=== PATIENT | female | born 1945 | race Caucasian/White ===

== ENCOUNTER 2021-01-12 09:12 | Emergency (ER) | payer MEDICARE ==
--- NOTE | 2021-01-12 09:27 | ERPHSYRPT ---
- History of Present Illness Time Seen by Provider: 01/12/21 09:24 Source: patient, family Exam Limitations: no limitations Physician History: The patient is a 75-year-old female with a past medical history significant for COPD and ongoing cigarette smoking in which she smokes a half a pack a day and reportedly started smoking when she was in college presents with a chief complaint thoracic back pain. Onset reportedly was 2 weeks ago. The pain is described as a sharp pain nonradiating and severe despite taking Tylenol in addition to ibuprofen. The patient states that she took 2 ibuprofen this morning with no relief in her pain and decided to come to the emergency department because over the last 2 weeks the pain is progressively gotten worse. She endorsed having shortness of breath but this is not increased from her baseline shortness of breath. The pain is nonradiating constant and primarily located to the right parathoracic lumbar spinous region. Of note, the patient has been evaluated by her primary care provider for this and had outpatient imaging to include a CT of her chest performed last Tuesday, January 05, 2021 and was found to have a right lower posterior lobe pulmonary mass. She has since been referred to a club room attendant and has a PET scan scheduled for today at 1215 in [place]. She denies cough, hemoptysis, chest pain, fever, chills, weight loss or worsening pain at night. She denies any traumatic injury that precipitated the pain. Timing/Duration: week(s) (2) Severity: severe Associated Symptoms: shortness of breath, No nausea, No vomiting, No abdominal pain, No cough, No chest pain Allergies/Adverse Reactions: Penicillins Allergy (Mild, Verified 01/12/21 10:01) Hiv Home Medications: ALPRAZolam [Xanax 0.25 mg] 0.25 mg PO DAILY 08/30/13 [History] Aspirin 81 gm Chew [Baby Aspirin 81 mg Chew] 81 mg PO DAILY 08/30/13 [History] Calcium Carbonate/Vitamin D3 [Calcium 500 + D Tablet] 1 each PO DAILY 08/30/13 [History] Citalopram Hydrobromide 20 mg* [ceLEXa 20 MG] 20 mg PO DAILY 08/30/13 [History] Multivitamin [Multivitamins] 1 each PO DAILY 08/30/13 [History] Omeprazole 20 MG [Prilosec 20 mg] 20 mg PO DAILY 08/30/13 [History] - Review of Systems Constitutional: Fatigue, Weakness, No Fever, No Chills Respiratory: Dyspnea, Other (Denies hemoptysis), No Cough, No Dyspnea on Exertion (SIM), No Stridor, No Wheezing Cardiac: No Chest Pain Musculoskeletal: Back Pain Neurological: No Symptoms Psychological: No Symptoms Endocrine: No Symptoms Hematologic/Lymphatic: No Symptoms All Other Systems: Reviewed and Negative - Past Medical History Pertinent Past Medical History: Yes Neurological History: No Pertinent History ENT History: No Pertinent History Cardiac History: No Pertinent History Respiratory History: No Pertinent History Endocrine Medical History: No Pertinent History Musculoskeletal History: No Pertinent History GI Medical History: GERD, Gallbladder Disease, Hemorrhoids History: No Pertinent History Psycho-Social History: Anxiety Female Reproductive Disorders: No Pertinent History - Past Surgical History Past Surgical History: Yes Neuro Surgical History: No Pertinent History Cardiac: No Pertinent History Respiratory: No Pertinent History Gastrointestinal: No Pertinent History, Cholecystectomy Genitourinary: No Pertinent History Musculoskeletal: No Pertinent History Female Surgical History: Section - Social History Smoking Status: Current every day smoker How long have you smoked: 40yrs Exposure to second hand smoke: No Drug Use: none - Nursing Vital Signs Nursing Vital Signs: Initial Vital Signs Temperature 97.9 F 01/12/21 09:12 Pulse Rate 86 01/12/21 09:12 Respiratory Rate 20 01/12/21 09:12 Blood Pressure 135/76 01/12/21 09:12 O2 Sat by Pulse Oximetry 96 01/12/21 09:12 Pain Scale Pain Intensity [Upper 10 Posterior Medial Back] Pain Intensity 5 - Physical Exam General Appearance: mild distress (The patient appeared to be writhing in pain and could not remain still) Eye Exam: PERRL/EOMI Ears, Nose, Throat Exam: No pharynx normal, No moist mucous membranes Neck Exam: normal inspection, non-tender, supple Respiratory Exam: lungs clear, diminished breath sounds, No respiratory distress, No crackles/rales, No rhonchi, No wheezing, No stridor, No pleural rub Cardiovascular Exam: regular rate/rhythm, normal heart sounds, normal peripheral pulses, capillary refill <2 sec, capillary refill 2-3 sec, No murmur, No friction rub, No gallop Gastrointestinal/Abdomen Exam: soft, No tenderness, No distention, No mass, No guarding Pelvic Exam: not done Rectal Exam: deferred Back Exam: normal inspection, other (No evidence of flank ecchymosis), No vertebral tenderness Neurologic Exam: alert, oriented x 3, cooperative Skin Exam: warm, dry, pale, No petechiae O2 Delivery: Room Air - Course EKG Interpreted by Me: RATE, Sinus Rhythm, Left [place] Deviation, NORMAL INTERVALS, NORMAL QRS, Other (Negative for STEMI, Normal sinus rhythm with a ventricular rate of 71 bpm) - Radiology Exams Chest X-ray Interpretation: Other (No acute findings) Ordered Tests: Active Orders 24 hr Category Date Time Status EKG-ER Only STAT Care 01/12/21 09:40 Completed IV Insertion STAT Care 01/12/21 09:40 Completed Pulse Oximetry (ED) STAT Care 01/12/21 09:40 Completed CHEST 2 VIEWS (PA AND LAT) Stat Exams 01/12/21 10:18 Completed BMP Stat Lab 01/12/21 09:50 Completed CBC W DIFF Stat Lab 01/12/21 09:50 Completed Hepatic Function Panel Stat Lab 01/12/21 09:50 Completed LIPASE Stat Lab 01/12/21 09:50 Completed Lactic Acid Stat Lab 01/12/21 11:14 Completed TROPONIN Stat Lab 01/12/21 09:50 Completed Medication Summary Discontinued Medications Generic Name Dose Route Start Last Admin Trade Name Caden PRN Reason Stop Dose Admin Hydrocodone Bitart/Acetaminophen 2 tab 01/12/21 09:43 01/12/21 10:05 Hydrocodone/Apap 5/325 Mg Tablet PO 01/12/21 09:44 2 tab STAT ONE Administration Hydrocodone Bitart/Acetaminophen Confirm 01/12/21 09:59 Hydrocodone/Apap 5/325 Mg Tablet Administered 01/12/21 10:00 Dose 2 tab .ROUTE .STK-MED ONE Hydromorphone HCl 0.3 mg 01/12/21 09:42 01/12/21 10:03 Hydromorphone 1 Mg/1ml Inj 1 Mg/Ml Syringe IV 01/12/21 09:43 0.3 mg STAT ONE Administration Hydromorphone HCl Confirm 01/12/21 09:59 Hydromorphone 1 Mg/1ml Inj 1 Mg/Ml Syringe Administered 01/12/21 10:00 Dose 1 mg .ROUTE .STK-MED ONE Sodium Chloride 1,000 mls @ 999 mls/hr 01/12/21 11:14 01/12/21 11:18 Sodium Chloride 0.9% 1000 Ml IV 01/12/21 12:14 999 mls/hr .Q1H1M STA Administration Sodium Chloride Confirm 01/12/21 11:18 Sodium Chloride 0.9% 1000 Ml Administered 01/12/21 11:19 Dose 1,000 mls @ ud .ROUTE .STK-MED ONE Ondansetron HCl 4 mg 01/12/21 09:42 01/12/21 10:03 Ondansetron Hcl 4 Mg/2 Ml Vial IV 01/12/21 09:43 4 mg STAT ONE Administration Ondansetron HCl Confirm 01/12/21 09:59 Ondansetron Hcl 4 Mg/2 Ml Vial Administered 01/12/21 10:00 Dose 4 mg .ROUTE .STK-MED ONE Pantoprazole Sodium 40 mg 01/12/21 10:50 01/12/21 10:58 Pantoprazole 40 Mg Vial IV 01/12/21 10:51 40 mg STAT ONE Administration Pantoprazole Sodium Confirm 01/12/21 10:58 Pantoprazole 40 Mg Vial Administered 01/12/21 10:59 Dose 40 mg IV .STK-MED ONE Simethicone 80 mg 01/12/21 10:51 01/12/21 11:07 Simethicone 80 Mg Tab.Chew PO 01/12/21 10:52 80 mg STAT ONE Administration Lab/Rad Data: Laboratory Result Diagrams 01/12/21 09:50 01/12/21 09:50 Laboratory Results 01/12/21 01/12/21 01/12/21 Range/Units 11:14 09:50 09:50 WBC (4.0-10.5) K/mm3 RBC (4.1-5.4) M/mm3 Hgb (12.0-16.0) gm/dl Hct (35-47) % MCV (78-100) fl MCH (26-32) pg MCHC (32-36) g/dl RDW (11.5-14.0) % Plt Count (150-450) K/mm3 MPV (7.5-11.0) fl Gran % (36.0-66.0) % Eos # (Auto) (0-0.5) Absolute Lymphs (auto) (1.0-4.6) Absolute Monos (auto) (0.0-1.3) Lymphocytes % (24.0-44.0) % Monocytes % (0.0-12.0) % Eosinophils % (0.00-5.0) % Basophils % (0.0-0.4) % Absolute Granulocytes (1.4-6.9) Basophils # (0-0.4) Sodium (137-145) mmol/L Potassium (3.5-5.1) mmol/L Chloride (98-107) mmol/L Carbon Dioxide (22-30) mmol/L Anion Gap (5-15) MEQ/L BUN (7-17) mg/dL Creatinine (0.52-1.04) mg/dL Estimated GFR ML/MIN Glucose (74-106) mg/dL Lactic Acid 1.0 (0.4-2.0) Calcium (8.4-10.2) mg/dL Total Bilirubin 0.70 (0.2-1.3) mg/dL Direct Bilirubin 0.2 (0.0-0.4) mg/dL AST 34 (14-36) U/L ALT 18 (0-35) U/L Alkaline Phosphatase 74 (38-126) U/L Troponin I (0.000-0.034) ng/mL Serum Total Protein 7.1 (6.3-8.2) g/dL Albumin 4.1 (3.5-5.0) g/dL Lipase 152 (23-300) U/L 01/12/21 01/12/21 Range/Units 09:50 09:50 WBC 10.1 (4.0-10.5) K/mm3 RBC 4.14 (4.1-5.4) M/mm3 Hgb 12.9 (12.0-16.0) gm/dl Hct 41.8 (35-47) % MCV 101.0 H (78-100) fl MCH 31.2 (26-32) pg MCHC 30.9 L (32-36) g/dl RDW 14.9 H (11.5-14.0) % Plt Count 228 (150-450) K/mm3 MPV 10.5 (7.5-11.0) fl Gran % 59.6 (36.0-66.0) % Eos # (Auto) 0.50 (0-0.5) Absolute Lymphs (auto) 2.74 (1.0-4.6) Absolute Monos (auto) 0.82 (0.0-1.3) Lymphocytes % 27.1 (24.0-44.0) % Monocytes % 8.1 (0.0-12.0) % Eosinophils % 4.9 (0.00-5.0) % Basophils % 0.3 (0.0-0.4) % Absolute Granulocytes 6.02 (1.4-6.9) Basophils # 0.03 (0-0.4) Sodium 141 (137-145) mmol/L Potassium 4.7 (3.5-5.1) mmol/L Chloride 107 (98-107) mmol/L Carbon Dioxide 27 (22-30) mmol/L Anion Gap 11.7 (5-15) MEQ/L BUN 22 H (7-17) mg/dL Creatinine 1.17 H (0.52-1.04) mg/dL Estimated GFR 48.2 ML/MIN Glucose 83 (74-106) mg/dL Lactic Acid (0.4-2.0) Calcium 9.6 (8.4-10.2) mg/dL Total Bilirubin (0.2-1.3) mg/dL Direct Bilirubin (0.0-0.4) mg/dL AST (14-36) U/L ALT (0-35) U/L Alkaline Phosphatase (38-126) U/L Troponin I < 0.012 (0.000-0.034) ng/mL Serum Total Protein (6.3-8.2) g/dL Albumin (3.5-5.0) g/dL Lipase (23-300) U/L - Progress Progress: improved Progress Note: 01/12/21 10:02 The patient presents with thoracic back pain has been present for the past 2 weeks has progressed to get worse. She has had outpatient work-ups to include plain films of her chest and thoracic back in addition to a CT of her chest. The CT of her chest on January 05, 2021 unfortunately demonstrated pulmonary nodules in addition to what appears to be a 2 cm + pulmonary mass located in the right posterior lobe. This is likely the etiology of her pain. I will perform a general work-up to include CBC, BMP, troponin and repeat her chest x-ray for further evaluation. Given that she has had this pain for the last 2 weeks and undergone imaging of her chest to include a CT my suspicion for PE at this point time is low. I will treat her pain with Dilaudid and will follow this up with [place] and reassess. EKG will also be obtained to eval for evidence of acute myocardial ischemia or injury pattern which I also have a low suspicion for at this time, specifically I have a low suspicion for ACS equivalent. 01/12/21 10:03 01/12/21 10:37 The patient was reassessed to find that she was much more comfortable. She was actually requested to be discharged so she can go to her PET scan. Family members have already contacted the imaging facility and made them aware they may be possibly late however they stated they can still likely fit her and if she is late. Her work-up thus far is negative to include her EKG which shows no evidence of ACS and her troponin is within normal limits. Chest x-ray shows no acute findings. 01/12/21 10:55 I spoke to the patient's primary care provider, Cynthia Draper, and discussed the case with her. She stated she was willing to refill the patient's [place] as needed given I can only provide a 3-day prescription. I went to update the patient with her discharge instructions and work-up findings however now she started to complain of some epigastric pressure and bloating. I suspect this is likely from the Dilaudid and the [place] she received. She has been n.p.o. since this morning given that she has a PET scan scheduled which is likely contributing to her symptoms as well. I will administer some simethicone and Protonix and see if this helps and will add a lipase to her work-up and put her discharge on hold for now. 01/12/21 11:15 The patient's blood pressure was noted to be 88/58. This may be from the Dilaudid the patient received. Lipase, LFTs and lactic are currently pending. Administer IV fluids and reassess. 01/12/21 11:41 The patient's blood pressure improved with IV fluids. She did get nauseous which I believe she may have a cold causing her hypotension as a side effect of the [place] and Dilaudid she received. Her blood pressure now is 102/59. I jericho laura she could be discharged to follow-up for her PET scan. Counseled pt/family regarding: lab results, diagnosis, need for follow-up, rad results - Departure Departure Disposition: Home Clinical Impression: Upper back pain on right side, Pulmonary mass, COPD (chronic obstructive pulmonary disease) Condition: Good Critical Care Time: No Referrals: MIGUEL TALBOT [facility] [employer]ER [Primary Care Provider] - Instructions: Chronic Obstructive Pulmonary Disease, Upper Back Pain Additional Instructions: Please follow-up as scheduled for your PET scan. Please take anywhere between 1 to 2 tablets of [place] (hydrocodone-acetaminophen) for breakthrough pain. Each tablet of [place] contains 325 mg of Tylenol. Please take no more than 975 mg of Tylenol at one time. Please do not mix any additional Tylenol (acetaminophen) while taking hydrocodone-acetaminophen to avoid potential liver injury. Do not consume alcohol while taking this medication and please do not take the hydrocodone acetaminophen together with your Xanax as this can make you stop breathing. Prescriptions: Sennosides/Docusate Sodium [Senna Laxative Tablet] 1 each PO QHS #30 tablet Hydrocodone/APAP 5/325 [[place] 5/325 mg] 1 - 2 each PO Q6H PRN PRN #16 tablet MDD 8 PRN Reason: Pain Ondansetron ODT 4 MG [Zofran Odt 4 mg] 4 mg PO Q6H PRN PRN #10 PRN Reason: Nausea
[2021-01-12] MEDS ORDERED: Zofran 4 MG/2 ML VIAL IV ONE (09:42)
[2021-01-12] MEDS ORDERED: Hydromorphone 1 mg/ml Injection IV ONE (09:42)
[2021-01-12] MEDS ORDERED: NORCO 5/325 MG PO ONE (09:43)
[2021-01-12] MEDS ORDERED: Zofran 4 MG/2 ML VIAL ONE (09:59)
[2021-01-12] MEDS ORDERED: NORCO 5/325 MG ONE (09:59)
[2021-01-12] MEDS ORDERED: Hydromorphone 1 mg/ml Injection ONE (09:59)
[2021-01-12 10:09] LABS: Absolute Neutrophil Ct (ANC) 6.02 (1.4-6.9); BASOPHIL % 0.3 % (0.0-0.4); Basophil (Absolute #) 0.03 (0-0.4); Eosinophil % 4.9 % (0.00-5.0); Hematocrit 41.8 % (35-47); Hemoglobin 12.9 gm/dl (12.0-16.0); Lymphocyte (Absolute #) 2.74 (1.0-4.6); Lymphocytes % 27.1 % (24.0-44.0); Mean Corpuscular Hemoglobin 31.2 pg (26-32); Mean Corpuscular Hgb Concent. 30.9 g/dl (32-36); Mean Platelet Volume 10.5 fl (7.5-11.0); Monocyte (Absolute #) 0.82 (0.0-1.3); Monocytes % 8.1 % (0.0-12.0); Neutrophil % 59.6 % (36.0-66.0); Platelet Count 228 K/mm3 (150-450); Red Blood Count 4.14 M/mm3 (4.1-5.4); Red Cell Distribution Width 14.9 % (11.5-14.0); White Blood Count 10.1 K/mm3 (4.0-10.5)
--- NOTE | 2021-01-12 10:28 | XRAY ---
Indication: Back pain. Comparison: January 05, 2021. PA/lateral chest unchanged again demonstrating COPD, right upper/left costophrenic angle/mediastinal calcified granulomas, and small right mid to lower lung nodularity. Heart not enlarged. Bony thorax intact again with osteopenia and degenerative changes. Impression: 1. Continued nonacute chest with chronic features. No new/acute findings. 2. Right and left lower lobe noncalcified masses seen on CT chest 6 days ago not visualized.
[2021-01-12 10:29] LABS: ANION GAP 11.7 MEQ/L (5-15); BLOOD UREA NITROGEN 22 mg/dL (7-17); CHLORIDE 107 mmol/L (98-107); Calcium 9.6 mg/dL (8.4-10.2); Carbon Dioxide 27 mmol/L (22-30); Creatinine 1 1.17 mg/dL (0.52-1.04); EST GLOMERULAR FILTRATION RATE 48.2 ML/MIN; Glucose 83 mg/dL (74-106); Potassium 4.7 mmol/L (3.5-5.1); SODIUM 141 mmol/L (137-145); TROPONIN < 0.012 ng/mL (0.000-0.034)
[2021-01-12] MEDS ORDERED: PROTONIX 40 MG IV IV ONE ×2 (10:50→10:58)
[2021-01-12] MEDS ORDERED: Mylicon 80MG PO ONE (10:51)
[2021-01-12] MEDS ORDERED: Sodium Chloride 0.9% 1000 ML 1,000 ML IV STA (11:14)
[2021-01-12] MEDS ORDERED: Sodium Chloride 0.9% 1000 ML 1,000 ML ONE (11:18)
[2021-01-12 11:36] LABS: ALBUMIN 4.1 g/dL (3.5-5.0); BILIRUBIN,TOTAL 0.7 mg/dL (0.2-1.3); Direct Bilirubin 0.2 mg/dL (0.0-0.4); Total Protein 7.1 g/dL (6.3-8.2)
[2021-01-12 11:41] VITALS: BP 102/59
[2021-01-12 11:43] VITALS: PULSE 71; O2SAT 99
== END 2021-01-12 11:48 | disposition home or self-care (01) ==
LOC: ED 09:12
DX: M54.6 Pain in thoracic spine (principal); R91.8 Other nonspecific abnormal finding of lung field; J44.9 Chronic obstructive pulmonary disease, unspecified
CPT/HCPCS: 36000; 36415; 71046; 80048; 80076; 83605; 83690; 84484; 85025; 93005; 94760; 96374; 96375; 99284; J1170; J2405; A9270-GY

== ENCOUNTER 2021-12-24 20:01 | Emergency (ER) | payer MEDICARE ==
[2021-12-24] MEDS ORDERED: Sodium Chloride 0.9% 1000 ML 1,000 ML IV SCH (20:45)
[2021-12-24] MEDS ORDERED: Sodium Chloride 0.9% 1000 ML 1,000 ML ONE (21:10)
[2021-12-24 21:14] LABS: Absolute Neutrophil Ct (ANC) 12.64 x10^3/uL (1.4-6.9); Basophil (Absolute #) 0.04 x10^3/uL (0-0.4); Eosinophil (Absolute #) 0 x10^3/uL (0-0.5); Hematocrit 26.6 % (35-47); Hemoglobin 7.7 g/dL (12.0-16.0); Lymphocyte (Absolute #) 1.73 x10^3/uL (1.0-4.6); Mean Cell Volume 103.1 fL (78-100); Mean Corpuscular Hemoglobin 29.8 pg (26-32); Mean Corpuscular Hgb Concent. 28.9 g/dL (32-36); Mean Platelet Volume 9.7 fL (7.5-11.0); Monocyte (Absolute #) 1.14 x10^3/uL (0.0-1.3); Monocytes % 7.3 % (0.0-12.0); Neutrophil % 80.5 % (36.0-66.0); Platelet Count 393 x10^3/uL (150-450); Red Blood Count 2.58 x10^6/uL (4.1-5.4); Red Cell Distribution Width 22.4 % (11.5-14.0); White Blood Count 15.7 x10^3/uL (4.0-10.5)
[2021-12-24 21:16] LABS: Appearance SLIGHTLY CLOUDY (CLEAR); Bilirubin MODERATE (NEGATIVE); Dipstick done @ ? MAIN LAB; Glucose NEGATIVE (NEGATIVE); Ketones SMALL-15 (NEGATIVE); Nitrite NEGATIVE (NEGATIVE); Ph 5.5 (5-6); Protein,Urine Dip 100 (Negative); RBC SMALL Ery/ul (0-5); Specific Gravity >=1.030 (1.005-1.025); Urobilinogen 0.2 mg/dL (0-1)
[2021-12-24 21:21] LABS: Bacteria FEW /HPF (NEGATIVE); Epithelial Cells RARE /HPF (FEW); Mucus MANY /HPF (NEGATIVE)
[2021-12-24 21:22] LABS: Urine Cultured Indicated? YES
[2021-12-24 21:29] LABS: ALBUMIN 2.4 g/dL (3.5-5.0); ANION GAP 7.1 MEQ/L (5-15); BILIRUBIN,TOTAL 0.7 mg/dL (0.2-1.3); Calcium 7.6 mg/dL (8.4-10.2); Creatinine 1 1.04 mg/dL (0.52-1.04); EST GLOMERULAR FILTRATION RATE 55.1 ML/MIN; Potassium 3.5 mmol/L (3.5-5.1); Total Protein 5.7 g/dL (6.3-8.2)
[2021-12-24] MEDS ORDERED: Macrobid 100MG Capsule PO ONE (22:17)
[2021-12-24] MEDS ORDERED: Macrobid 100MG Capsule ONE (22:20)
--- NOTE | 2021-12-24 22:40 | ERPHSYRPT ---
- History of Present Illness Source: patient, family Exam Limitations: no limitations Patient Subjective Stated Complaint: per pt's daughter, pt has been increasingly weak the last few days and family feels like she is dehydrated. Triage Nursing Assessment: pt alert and oriented, answers questions approp. pt back per wheelchair and transfers to stretcher with assist of 2. pt short of breath and pursed lip breathing with exertion. skin warm and dry. 2+ edema to bilat lower ext Timing/Duration: week(s), constant, gradual onset, worse Severity: moderate, severe Modifying Factors: Worsens With: movement Associated Symptoms: nausea, loss of appetite, malaise, weakness Hx Tetanus, Diphtheria Vaccination/Date Given: Yes Hx Influenza Vaccination/Date Given: No Hx Pneumococcal Vaccination/Date Given: No Immunizations Up to Date: Yes - History of Present Illness Time Seen by Provider: 12/24/21 20:03 Physician History: 76 years old female with history of lung cancer chemoradiation, COPD chronic respiratory failure on 2 L oxygen, heavy tobacco use presented in the ER with chief complaint of generalized weakness fatigue and tiredness. Patient has decreased oral intake and gradual decline in her health for the last few weeks and losing almost 5 pounds every week. Patient also has bilateral lower e xtremity swelling which is lately getting worse. She is refusing to eat or drink anything for the last couple of days and has not been taking her routine medications as well. No fever or chills reported. Has chronic shortness of breath and cough which is at baseline. (LENNIE KAUR) Allergies/Adverse Reactions: Penicillins Allergy (Mild, Verified 12/24/21 20:49) Hives Home Medications: ALPRAZolam [Xanax 0.25 mg] 0.25 mg PO DAILY 08/30/13 [History] Aspirin 81 gm Chew [Baby Aspirin 81 mg Chew] 81 mg PO DAILY 08/30/13 [H istory] Calcium Carbonate/Vitamin D3 [Calcium 500 + D Tablet] 1 each PO DAILY 08/30/13 [History] Citalopram Hydrobromide 20 mg* [ceLEXa 20 MG] 20 mg PO DAILY 08/30/13 [History] Multivitamin [Multivitamins] 1 each PO DAILY 08/30/13 [History] Omeprazole 20 MG [Prilosec 20 mg] 20 mg PO DAILY 08/30/13 [History] Travel Risk - International Travel Have you traveled outside of the country in past 3 weeks: No - Coronavirus Screening Are you exhibiting any of the following symptoms?: No Close contact with a COVID-19 positive Pt in past 14-21 Days: No - Vaccine Status Have you recieved a Covid-19 vaccination: Yes [employer]: Moderna - Vaccination Dates Date of 2cond Vaccination (if applicable): unknown - Review of Systems Constitutional: Fatigue, Weakness Eyes: No Symptoms Ears, Nose, & Throat: No Symptoms Respiratory: Cough, Dyspnea Cardiac: No Symptoms Abdominal/Gastrointestinal: Diarrhea Genitourinary Symptoms: No Symptoms Musculoskeletal: Myalgias Skin: No Symptoms Neurological: No Symptoms Psychological: Depression Endocrine: No Symptoms Hematologic/Lymphatic: No Symptoms Immunological/Allergic: No Symptoms - Past Medical History Pertinent Past Medical History: Yes Neurological History: No Pertinent History ENT History: No Pertinent History Cardiac History: No Pertinent History Respiratory History: COPD, Lung Cancer Endocrine Medical History: No Pertinent History Musculoskeletal History: No Pertinent History GI Medical History: GERD, Gallbladder Disease, Hemorrhoids History: Renal Disease Psycho-Social History: Anxiety Female Reproductive Disorders: No Pertinent History Other Medical History: radiation x10, chemo x1 - Past Surgical History Past Surgical History: Yes Neuro Surgical History: No Pertinent History Cardiac: No Pertinent History Respiratory: No Pertinent History Gastrointestinal: No Pertinent History, Cholecystectomy Genitourinary: No Pertinent History Musculoskeletal: No Pertinent History Female Surgical History: Section Other Surgical History: aaa with stent repair - Social History Smoking Status: Current every day smoker How long have you smoked: yrs Exposure to second hand smoke: No Drug Use: none Patient Lives Alone: No - Physical Exam General Appearance: no apparent distress, alert Eye Exam: PERRL/EOMI Ears, Nose, Throat Exam: dry mucous membranes, pharyngeal erythema Neck Exam: normal inspection, full range of motion Respiratory Exam: normal breath sounds, lungs clear Cardiovascular Exam: regular rate/rhythm, normal heart sounds, edema Gastrointestinal/Abdomen Exam: soft, normal bowel sounds, No tenderness Back Exam: normal inspection, No CVA tenderness Extremity Exam: normal range of motion, pelvis stable Neurologic Exam: alert, oriented x 3, cooperative Skin Exam: normal color SpO2 Interpretation: normal SpO2: 100 O2 Delivery: Nasal Cannula (2 L) - Nursing Vital Signs Nursing Vital Signs: Initial Vital Signs Temperature 98.2 F 10/13/22 20:19 Pulse Rate 104 H 12/24/21 20:19 Respiratory Rate 20 12/24/21 20:19 Blood Pressure 122/68 12/24/21 20:19 O2 Sat by Pulse Oximetry 100 12/24/21 20:19 Pain Scale Pain Intensity 0 - Course EKG Interpreted by Me: RATE (95), Sinus Rhythm, NORMAL AXIS, NORMAL INTERVALS, Non-specific ST Changes Ordered Tests: Active Orders 24 hr Category Date Time Status IV Insertion STAT Care 12/24/21 20:43 Completed CHEST 1 VIEW (PORTABLE) Stat Exams 12/24/21 21:30 Completed BLOOD CULTURE Stat Lab 12/24/21 21:41 Received BNP [NT PRO BNP] Stat Lab 12/24/21 20:45 Completed CBC W DIFF Stat Lab 12/24/21 20:45 Completed CMP Stat Lab 12/24/21 20:45 Completed CULTURE,URINE Stat Lab 12/24/21 20:45 Received Lactic Acid Stat Lab 12/24/21 21:08 Completed MAG [MAGNESIUM] Stat Lab 12/24/21 20:45 Completed PROCALCITONIN Stat Lab 12/24/21 21:00 Completed TROPONIN Q4H Lab 12/24/21 20:45 Completed UA W/RFX CULTURE Stat Lab 12/24/21 20:45 Completed Medication Summary Discontinued Medications Generic Name Dose Route Start Last Admin Trade Name Freq PRN Reason Stop Dose Admin Heparin Sodium (Beef Lung) 500 units 12/25/21 00:00 Heparin Lock Flush Pf 500 Units/5 Ml Syringe PORT FLUSH 01/24/22 00:00 PRN PRN IV PORT FLUSH Heparin Sodium (Beef Lung) Confirm 12/25/21 00:02 Heparin Lock Flush Pf 500 Units/5 Ml Syringe Administered 12/25/21 00:03 Dose 500 units .ROUTE .STK-MED ONE Sodium Chloride 1,000 mls @ 100 mls/hr 12/24/21 20:45 12/24/21 22:11 Sodium Chloride 0.9% 1000 Ml IV 01/23/22 20:44 500 mls/hr .Q10H FOUZIA Infusion Levofloxacin/Dextrose 500 mg in 100 mls @ 100 mls/hr 12/24/21 22:59 12/24/21 23:03 Levofloxacin 500mg/100ml D5w IV 10/13/22 23:58 100 mls/hr STAT STA 100 mls/hr Administration Levofloxacin/Dextrose Confirm 12/24/21 23:01 Levofloxacin 500mg/100ml D5w Administered 12/24/21 23:02 Dose 500 mg in 100 mls @ ud IV .STK-MED ONE Sodium Chloride Confirm 12/24/21 21:10 Sodium Chloride 0.9% 1000 Ml Administered 12/24/21 21:11 Dose 1,000 mls @ ud .ROUTE .STK-MED ONE Nitrofurantoin Macrocrystals 100 mg 12/24/21 22:17 12/24/21 22:21 Nitrofurantoin Macro 100 Mg Capsule PO 12/24/21 22:18 100 mg STAT ONE Administration Nitrofurantoin Macrocrystals Confirm 12/24/21 22:20 Nitrofurantoin Macro 100 Mg Capsule Administered 12/24/21 22:21 Dose 100 mg .ROUTE .STK-MED ONE Lab/Rad Data: Laboratory Result Diagrams 12/24/21 20:45 12/24/21 20:45 Laboratory Results 12/24/21 12/24/21 12/24/21 Range/Units 21:08 21:00 20:45 WBC (4.0-10.5) x10^3/uL RBC (4.1-5.4) x10^6/uL Hgb (12.0-16.0) g/dL Hct (35-47) % MCV (78-100) fL MCH (26-32) pg MCHC (32-36) g/dL RDW (11.5-14.0) % Plt Count (150-450) x10^3/uL MPV (7.5-11.0) fL Gran % (36.0-66.0) % Immature Gran % (Auto) (0.00-0.4) % Nucleat RBC Rel Count (0.00-0.1) % Eos # (Auto) (0-0.5) x10^3/uL Immature Gran # (Auto) (0.00-0.03) x10^3u/L Absolute Lymphs (auto) (1.0-4.6) x10^3/uL Absolute Monos (auto) (0.0-1.3) x10^3/uL Absolute Nucleated RBC (0.00-0.01) x10^3u/L Lymphocytes % (24.0-44.0) % Monocytes % (0.0-12.0) % Eosinophils % (0.00-5.0) % Basophils % (0.0-0.4) % Absolute Granulocytes (1.4-6.9) x10^3/uL Basophils # (0-0.4) x10^3/uL Sodium (137-145) mmol/L Potassium (3.5-5.1) mmol/L Chloride (98-107) mmol/L Carbon Dioxide (22-30) mmol/L Anion Gap (5-15) MEQ/L BUN (7-17) mg/dL Creatinine (0.52-1.04) mg/dL Estimated GFR ML/MIN Glucose (74-106) mg/dL Lactic Acid 0.9 (0.4-2.0) Calcium (8.4-10.2) mg/dL Magnesium 2.0 (1.6-2.3) mg/dL Total Bilirubin (0.2-1.3) mg/dL AST (14-36) U/L ALT (0-35) U/L Alkaline Phosphatase (38-126) U/L Troponin I (0.000-0.034) ng/mL NT-Pro-B Natriuret Pep 4970 H (0-900) pg/mL Serum Total Protein (6.3-8.2) g/dL Albumin (3.5-5.0) g/dL Procalcitonin 0.158 H (0.030-0.080) ng/mL Urinalys Dipstick Clnc Urine Color (YELLOW) Urine Appearance (CLEAR) Urine pH (5-6) Ur Specific [place] (1.005-1.025) POC Urine Protein Conf (Negative) Urine Ketones (NEGATIVE) Urine Nitrite (NEGATIVE) Urine Bilirubin (NEGATIVE) Urine Urobilinogen (0-1) mg/dL Urine Leukocytes (NEGATIVE) Urine WBC (Auto) (0-5) /HPF Urine RBC (Auto) (0-2) /HPF U Epithel Cells (Auto) (FEW) /HPF Urine Bacteria (Auto) (NEGATIVE) /HPF Urine RBC (0-5) Aubrey/ul Urine Mucus (Auto) (NEGATIVE) /HPF Ur Culture Indicated? Urine Glucose (NEGATIVE) mg/dL Slides for Path Review 12/24/21 12/24/21 12/24/21 Range/Units 20:45 20:45 20:45 WBC (4.0-10.5) x10^3/uL RBC (4.1-5.4) x10^6/uL Hgb (12.0-16.0) g/dL Hct (35-47) % MCV (78-100) fL MCH (26-32) pg MCHC (32-36) g/dL RDW (11.5-14.0) % Plt Count (150-450) x10^3/uL MPV (7.5-11.0) fL Gran % (36.0-66.0) % Immature Gran % (Auto) (0.00-0.4) % Nucleat RBC Rel Count (0.00-0.1) % Eos # (Auto) (0-0.5) x10^3/uL Immature Gran # (Auto) (0.00-0.03) x10^3u/L Absolute Lymphs (auto) (1.0-4.6) x10^3/uL Absolute Monos (auto) (0.0-1.3) x10^3/uL Absolute Nucleated RBC (0.00-0.01) x10^3u/L Lymphocytes % (24.0-44.0) % Monocytes % (0.0-12.0) % Eosinophils % (0.00-5.0) % Basophils % (0.0-0.4) % Absolute Granulocytes (1.4-6.9) x10^3/uL Basophils # (0-0.4) x10^3/uL Sodium 141 (137-145) mmol/L Potassium 3.5 (3.5-5.1) mmol/L Chloride 106 (98-107) mmol/L Carbon Dioxide 32 H (22-30) mmol/L Anion Gap 7.1 (5-15) MEQ/L BUN 19 H (7-17) mg/dL Creatinine 1.04 (0.52-1.04) mg/dL Estimated GFR 55.1 ML/MIN Glucose 95 (74-106) mg/dL Lactic Acid (0.4-2.0) Calcium 7.6 L (8.4-10.2) mg/dL Magnesium (1.6-2.3) mg/dL Total Bilirubin 0.70 (0.2-1.3) mg/dL AST 44 H (14-36) U/L ALT 18 (0-35) U/L Alkaline Phosphatase 112 (38-126) U/L Troponin I 0.016 (0.000-0.034) ng/mL NT-Pro-B Natriuret Pep (0-900) pg/mL Serum Total Protein 5.7 L (6.3-8.2) g/dL Albumin 2.4 L (3.5-5.0) g/dL Procalcitonin (0.030-0.080) ng/mL Urinalys Dipstick Clnc MAIN LAB Urine Color YELLOW (YELLOW) Urine Appearance SLIGHTLY CLOUDY (CLEAR) Urine pH 5.5 (5-6) Ur Specific [place] >=1.030 (1.005-1.025) POC Urine Protein Conf 100 (Negative) Urine Ketones SMALL-15 (NEGATIVE) Urine Nitrite NEGATIVE (NEGATIVE) Urine Bilirubin MODERATE (NEGATIVE) Urine Urobilinogen 0.2 (0-1) mg/dL Urine Leukocytes TRACE (NEGATIVE) Urine WBC (Auto) 11-15 (0-5) /HPF Urine RBC (Auto) 11-15 (0-2) /HPF U Epithel Cells (Auto) RARE (FEW) /HPF Urine Bacteria (Auto) FEW (NEGATIVE) /HPF Urine RBC SMALL (0-5) Aubrey/ul Urine Mucus (Auto) MANY (NEGATIVE) /HPF Ur Culture Indicated? YES Urine Glucose NEGATIVE (NEGATIVE) mg/dL Slides for Path Review 12/24/21 Range/Units 20:45 WBC 15.7 H (4.0-10.5) x10^3/uL RBC 2.58 L (4.1-5.4) x10^6/uL Hgb 7.7 L (12.0-16.0) g/dL Hct 26.6 L (35-47) % MCV 103.1 H (78-100) fL MCH 29.8 (26-32) pg MCHC 28.9 L (32-36) g/dL RDW 22.4 H (11.5-14.0) % Plt Count 393 (150-450) x10^3/uL MPV 9.7 (7.5-11.0) fL Gran % 80.5 H (36.0-66.0) % Immature Gran % (Auto) 0.9 H (0.00-0.4) % Nucleat RBC Rel Count 0.0 (0.00-0.1) % Eos # (Auto) 0 (0-0.5) x10^3/uL Immature Gran # (Auto) 0.14 H (0.00-0.03) x10^3u/L Absolute Lymphs (auto) 1.73 (1.0-4.6) x10^3/uL Absolute Monos (auto) 1.14 (0.0-1.3) x10^3/uL Absolute Nucleated RBC 0.00 (0.00-0.01) x10^3u/L Lymphocytes % 11.0 L (24.0-44.0) % Monocytes % 7.3 (0.0-12.0) % Eosinophils % 0.0 (0.00-5.0) % Basophils % 0.3 (0.0-0.4) % Absolute Granulocytes 12.64 H (1.4-6.9) x10^3/uL Basophils # 0.04 (0-0.4) x10^3/uL Sodium (137-145) mmol/L Potassium (3.5-5.1) mmol/L Chloride (98-107) mmol/L Carbon Dioxide (22-30) mmol/L Anion Gap (5-15) MEQ/L BUN (7-17) mg/dL Creatinine (0.52-1.04) mg/dL Estimated GFR ML/MIN Glucose (74-106) mg/dL Lactic Acid (0.4-2.0) Calcium (8.4-10.2) mg/dL Magnesium (1.6-2.3) mg/dL Total Bilirubin (0.2-1.3) mg/dL AST (14-36) U/L ALT (0-35) U/L Alkaline Phosphatase (38-126) U/L Troponin I (0.000-0.034) ng/mL NT-Pro-B Natriuret Pep (0-900) pg/mL Serum Total Protein (6.3-8.2) g/dL Albumin (3.5-5.0) g/dL Procalcitonin (0.030-0.080) ng/mL Urinalys Dipstick Clnc Urine Color (YELLOW) Urine Appearance (CLEAR) Urine pH (5-6) Ur Specific [place] (1.005-1.025) POC Urine Protein Conf (Negative) Urine Ketones (NEGATIVE) Urine Nitrite (NEGATIVE) Urine Bilirubin (NEGATIVE) Urine Urobilinogen (0-1) mg/dL Urine Leukocytes (NEGATIVE) Urine WBC (Auto) (0-5) /HPF Urine RBC (Auto) (0-2) /HPF U Epithel Cells (Auto) (FEW) /HPF Urine Bacteria (Auto) (NEGATIVE) /HPF Urine RBC (0-5) Aubrey/ul Urine Mucus (Auto) (NEGATIVE) /HPF Ur Culture Indicated? Urine Glucose (NEGATIVE) mg/dL Slides for Path Review YES - Progress Progress: unchanged Counseled pt/family regarding: lab results, diagnosis, need for follow-up, rad results - Progress Progress Note: 12/24/21 23:57 She is given gentle hydration as patient already have retention in her legs. Baseline work-up showed chronic anemia of 7.7 with hypoalbuminemia which probably is the reason for third spacing. Patient blood pressure is borderline, she has not been taking full dose Lasix for the last few days after she saw cardiology because of recent worsening of renal functions. Today her renal fu nctions are back to normal with a creatinine of 1.04. She has some element of UTI and elevated procalcitonin with no other obvious focus of infection, given a dose of IV Levaquin and will continue with 250 oral Levaquin.. Recommended observation admission which patient adamantly refused. Discussed with patient and daughters in detail multiple times and she does not want to stay in the hospital at all. Patient is not confused or altered and understand the risk of going home with worsening of condition but she still wants to leave. With her cancer and need for chemotherapy and decreased oral intake I believe she would benefit with PEG tube placement for which daughter is advised to follow-up outpatient with primary care and may need referral for GI/surgery for assessment and placement of PEG tube so that she can get adequate nutrition. Her main issue currently is malnutrition and also some element of depression as well. Patient and family is counseled and recommended return to ER for any worsening. (LENNIE KAUR) 12/25/21 08:55 Dr. Qiu called and stated that CXR w new R middle lobe opacity, either pneumonic infiltrate vs enlarging mass. Pt with known lung CA. She was discharged on Levaquin and refused admit per chart. Spoke w pt and told her that Levaquin was a good antibiotic for CAP and yhat she needed to f/u w her oncologist. (MARK ANTHONY ANGULO,CARO) - Departure Departure Disposition: Home Critical Care Time: No - Departure Clinical Impression: General weakness, Malnutrition, UTI (urinary tract infection) Condition: Fair Referrals: MIGUEL TALBOT, MONTESSORI PARAPROFESSIONAL [Primary Care Provider] - Follow up/PCP as directed (Tomorrow for reevaluation) Instructions: Failure to Thrive, Adult (DC) Additional Instructions: Small frequent feeds. Keep yourself well-hydrated. follow-up with primary care for reevaluation and referral to GI/surgery for PEG tube placement assessment. Return to ER for any worsening. Prescriptions: Levofloxacin [Levofloxacin 250MG Tablet] 250 mg PO DAILY #7 tab
[2021-12-24 22:50] LABS: Slide Review 1 YES
[2021-12-24] MEDS ORDERED: Levofloxacin 500MG/100ML D5W 500 MG/100 ML BAG IV STA (22:59)
[2021-12-24] MEDS ORDERED: Levofloxacin 500MG/100ML D5W 500 MG/100 ML BAG IV ONE (23:01)
[2021-12-25 00:02] VITALS: O2SAT 100
[2021-12-25 00:07] VITALS: BP 113/61; PULSE 102
--- NOTE | 2021-12-25 08:54 | XRAY ---
Indication: General weakness. Dehydration. Comparison: January 23, 2021 Portable chest demonstrates new right middle lung opacity either pneumonic infiltrate versus enlarging CT proven right lower lobe mass. New small right effusion and new right Port-A-Cath. Again chronic findings including COPD, scattered calcified granulomas, and partially visualized proximal abdominal aortic stent graft. Bony thorax intact again with osteopenia and degenerative changes. Comment: Right lung findings not reported by the interpreting ER clinician. Telephone report was given to Dr. Cristina at 0848 hrs. on December 25, 2021.
== END 2021-12-25 00:20 | disposition home or self-care (01) ==
LOC: ED 20:01
DX: R53.1 Weakness (principal); E46 Unspecified protein-calorie malnutrition; N39.0 Urinary tract infection, site not specified; J96.10 Chronic respiratory failure, unspecified whether with hypoxia or hypercapnia; Z99.81 Dependence on supplemental oxygen; Z85.118 Personal history of other malignant neoplasm of bronchus and lung; Z79.899 Other long term (current) drug therapy; D64.9 Anemia, unspecified; E88.09 Other disorders of plasma-protein metabolism, not elsewhere classified
CPT/HCPCS: 36000; 36415; 71045; 80053; 81015; 83605; 83735; 83880; 84145; 84484; 85025; 87040; 87077; 87086; 87186; 96360; 96361; 96365; 99284; J1642; J1956; A9270-GY

== ENCOUNTER 2022-01-07 18:01 | Emergency (ER) | payer MEDICARE ==
[2022-01-07] MEDS ORDERED: Klor Con PO ONE ×2 (20:19→20:24)
[2022-01-07] MEDS ORDERED: Sodium Chloride 0.9% 500 ML 500 ML IV ONE (20:24)
[2022-01-07] MEDS ORDERED: POTASSIUM CHLORIDE 20 mEq IN WATER 100ML 100 ML IV ONE (20:24)
[2022-01-07] MEDS: POTASSIUM CHLORIDE 20 mEq IN WATER 100ML 100 ML IV SCH ×2 (20:25→22:29)
[2022-01-07 22:08] VITALS: O2SAT 99
--- NOTE | 2022-01-07 23:05 | ERPHSYRPT ---
- History of Present Illness Source: patient, family Exam Limitations: no limitations Patient Subjective Stated Complaint: Patient was called at home by Dr. Mariscal's office and told that patient's K+ was low at 2.7 and that they need to go to an ER for treatment. K+ level was drawn at this hospital earlier today. Triage Nursing Assessment: Patient bundled up in shirts and jacket. She is alert and oriented. Currently wearing oxygen at 2L per N/C that she wears all of the time at home; not new. Physician History: 76 yo WF w lung ca presents from home w hypokalemia. Pt sent to ER per her geotechnical operating engineer for KCl of 2.7. Pt has chronic weakness due to her lung ca and has not been able to undergo chemo for 6-8 wks. She denies N/V/D/focal weakness/fever/chest pain/dyspnea. Pt states that she does not want to stay in the hospital. Timing/Duration: today Severity: mild Modifying Factors: Improves With: nothing Associated Symptoms: denies symptoms Allergies/Adverse Reactions: Penicillins Allergy (Mild, Verified 01/07/22 18:21) Hives Home Medications: ALPRAZolam [Xanax 0.25 mg] 0.25 mg PO DAILY 08/30/13 [History] Aspirin 81 gm Chew [Baby Aspirin 81 mg Chew] 81 mg PO DAILY 08/30/13 [History] Calcium Carbonate/Vitamin D3 [Calcium 500 + D Tablet] 1 each PO DAILY 08/30/13 [History] Citalopram Hydrobromide 20 mg* [ceLEXa 20 MG] 20 mg PO DAILY 08/30/13 [History] Multivitamin [Multivitamins] 1 each PO DAILY 08/30/13 [History] Omeprazole 20 MG [Prilosec 20 mg] 20 mg PO DAILY 08/30/13 [History] Hx Tetanus, Diphtheria Vaccination/Date Given: Yes Hx Influenza Vaccination/Date Given: No Hx Pneumococcal Vaccination/Date Given: Yes Immunizations Up to Date: Yes Travel Risk - International Travel Have you traveled outside of the country in past 3 weeks: No - Coronavirus Screening Are you exhibiting any of the following symptoms?: No Close contact with a COVID-19 positive Pt in past 14-21 Days: No - Vaccine Status Have you recieved a Covid-19 vaccination: Yes [employer]: Moderna - Vaccination Dates Date of 2cond Vaccination (if applicable): unknown - Review of Systems Constitutional: No Symptoms, Malaise, Weakness Eyes: No Symptoms Ears, Nose, & Throat: No Symptoms Respiratory: No Symptoms Cardiac: No Symptoms Abdominal/Gastrointestinal: No Symptoms Genitourinary Symptoms: No Symptoms Musculoskeletal: No Symptoms Skin: No Symptoms Neurological: No Symptoms Psychological: No Symptoms Endocrine: No Symptoms Hematologic/Lymphatic: No Symptoms Immunological/Allergic: No Symptoms - Past Medical History Pertinent Past Medical History: Yes Neurological History: No Pertinent History ENT History: No Pertinent History Cardiac History: No Pertinent History Respiratory History: COPD, Lung Cancer Endocrine Medical History: No Pertinent History Musculoskeletal History: No Pertinent History GI Medical History: GERD, Gallbladder Disease, Hemorrhoids History: Renal Disease Psycho-Social History: Anxiety Female Reproductive Disorders: No Pertinent History Other Medical History: radiation x10, chemo x1 - Past Surgical History Past Surgical History: Yes Neuro Surgical History: No Pertinent History Cardiac: No Pertinent History Respiratory: No Pertinent History Gastrointestinal: No Pertinent History, Cholecystectomy Genitourinary: No Pertinent History Musculoskeletal: No Pertinent History Female Surgical History: Section Other Surgical History: aaa with stent repair - Social History Smoking Status: Current every day smoker How long have you smoked: yrs Exposure to second hand smoke: No Drug Use: none Patient Lives Alone: No - Nursing Vital Signs Nursing Vital Signs: Initial Vital Signs Temperature 98.6 F 01/07/22 18:22 Pulse Rate 83 01/07/22 18:22 Respiratory Rate 18 01/07/22 18:22 Blood Pressure 97/68 01/07/22 18:22 O2 Sat by Pulse Oximetry 100 01/07/22 18:22 Pain Scale Pain Intensity 0 WNL for pt - Physical Exam General Appearance: no apparent distress, cachetic Eye Exam: PERRL/EOMI, eyes nml inspection Ears, Nose, Throat Exam: normal ENT inspection, TMs normal, pharynx normal, moist mucous membranes Neck Exam: normal inspection, non-tender, supple, full range of motion, No meningismus, No mass, No Brudzinski, No Kernig's Respiratory Exam: normal breath sounds, lungs clear, No respiratory distress Cardiovascular Exam: regular rate/rhythm, normal heart sounds, normal peripheral pulses, No murmur Gastrointestinal/Abdomen Exam: soft, normal bowel sounds, No tenderness Back Exam: normal inspection, normal range of motion, No CVA tenderness, No vertebral tenderness Extremity Exam: normal inspection, normal range of motion Neurologic Exam: alert, oriented x 3, cooperative, film or tape librarian II-XII nml as tested, normal mood/affect, nml cerebellar function, nml station & gait, sensation nml, No motor deficits, No sensory deficit, No disoriented Skin Exam: normal color, warm, dry, No rash Lymphatic Exam: No adenopathy SpO2 Interpretation: normal SpO2: 99 O2 Delivery: Room Air - Course Nursing assessment & vital signs reviewed: Yes Ordered Tests: Active Orders 24 hr Category Date Time Status Telemetry q4h Care 01/07/22 20:19 Active Medication Summary Generic Name Dose Route Start Last Admin Trade Name Freq PRN Reason Stop Dose Admin Heparin Sodium (Beef Lung) 500 units 01/07/22 22:55 01/07/22 22:57 Heparin Lock Flush Pf 500 Units/5 Ml Syringe PORT FLUSH 02/06/22 22:54 500 units PRN PRN Administration IV PORT FLUSH Potassium Chloride 100 mls @ 50 mls/hr 01/07/22 20:30 01/07/22 22:29 Potassium Chloride 20 Meq In Water 100ml IV 01/08/22 00:29 Not Given Q2H FOUZIA Discontinued Medications Generic Name Dose Route Start Last Admin Trade Name Freq PRN Reason Stop Dose Admin Sodium Chloride Confirm 01/07/22 20:24 Sodium Chloride 0.9% 500 Ml Administered 01/07/22 20:25 Dose 500 mls @ ud IV .STK-MED ONE Potassium Chloride 40 meq 01/07/22 20:19 01/07/22 20:25 Potassium Chloride Tab 10 Meq Tab PO 01/07/22 20:20 40 meq STAT ONE Administration Potassium Chloride Confirm 01/07/22 20:24 Potassium Chloride Tab 10 Meq Tab Administered 01/07/22 20:25 Dose 40 meq PO .STK-MED ONE - Progress Progress Note: 01/07/22 23:04 40mEQ po KCL 20mEQ in 50ml ml over 2 hours Counseled pt/family regarding: lab results, diagnosis, need for follow-up - Departure Departure Disposition: Home Clinical Impression: Hypokalemia Condition: Stable Critical Care Time: No Referrals: MIGUEL TALBOT NP [Primary Care Provider] - Follow up/PCP as directed Instructions: Hypokalemia (DC) Additional Instructions: Follow up with your geotechnical operating engineer and /or oncologist Start potassium twice a day Return to ER as needed Prescriptions: Potassium Chloride 20 meq PO BID 7 Days #250 ml
[2022-01-07 23:06] VITALS: BP 112/58; PULSE 88
== END 2022-01-07 23:15 | disposition home or self-care (01) ==
LOC: ED 18:01
DX: E87.6 Hypokalemia (principal); J44.9 Chronic obstructive pulmonary disease, unspecified; Z72.0 Tobacco use; Z79.899 Other long term (current) drug therapy
CPT/HCPCS: 36000; 96360; 96361; 99284; J1642; J3480; A9270-GY

== ENCOUNTER 2022-01-12 19:15 | Emergency (ER) | payer MEDICARE ==
[2022-01-12] MEDS ORDERED: TYLENOL 325 MG ONE (20:51)
[2022-01-12] MEDS: TYLENOL 325 MG PO ONE (20:51)
--- NOTE | 2022-01-12 21:02 | ERPHSYRPT ---
- History of Present Illness Time Seen by Provider: 01/12/22 20:57 Source: patient Exam Limitations: no limitations Patient Subjective Stated Complaint: left thigh pain since noon today Triage Nursing Assessment: pt brought back in wheelchair, with 2 daughters at bedside. Pt c/o left upper thigh pain, appears slightly swollen. Pt is unable to put any weight on her left leg at all. Rates pain a 10 out of 10. Physician History: Patient is a 76-year-old female with a history of lung cancer presents to emergency department for evaluation of the left hip pain. Pain started today. Pain described as an ache that is localized. No radiation. Patient has palpable swelling to this location. No falls. No injuries. No lower extremity numbness tingling weakness. Symptoms are mild to moderate in intensity. Palpation and ambulation reproduce symptoms. Pain improved with rest. 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 However she has no calf pain or posterior popliteal pain. Pain is lateral to the greater trochanter. Family at bedside. They voiced no other complaints or concerns at this time. Portions of this note were created with voice recognition technology. There may be grammatical, spelling, punctuation or sound alike errors Method of Injury: unknown Occurred: other (This morning) Quality: constant Severity of Pain-Max: moderate Severity of Pain-Current: mild Lower Extremities Pain: hip: left Modifying Factors: Improves With: other (Palpation reproduces pain.) Associated Symptoms: none Allergies/Adverse Reactions: Penicillins Allergy (Mild, Verified 01/12/22 19:38) Hives Home Medications: ALPRAZolam [Xanax 0.25 mg] 0.25 mg PO DAILY 08/30/13 [History] Aspirin 81 gm Chew [Baby Aspirin 81 mg Chew] 81 mg PO DAILY 08/30/13 [History] Calcium Carbonate/Vitamin D3 [Calcium 500 + D Tablet] 1 each PO DAILY 08/30/13 [History] Citalopram Hydrobromide 20 mg* [ceLEXa 20 MG] 20 mg PO DAILY 08/30/13 [History] Multivitamin [Multivitamins] 1 each PO DAILY 08/30/13 [History] Omeprazole 20 MG [Prilosec 20 mg] 20 mg PO DAILY 08/30/13 [History] Hx Tetanus, Diphtheria Vaccination/Date Given: Yes Hx Influenza Vaccination/Date Given: No Hx Pneumococcal Vaccination/Date Given: Yes Immunizations Up to Date: Yes Travel Risk - International Travel Have you traveled outside of the country in past 3 weeks: No - Coronavirus Screening Are you exhibiting any of the following symptoms?: No Close contact with a COVID-19 positive Pt in past 14-21 Days: No - Vaccine Status Have you recieved a Covid-19 vaccination: Yes [employer] Warm Up: Moderna - Vaccination Dates Date of 2cond Vaccination (if applicable): . - Review of Systems Constitutional: No Symptoms, No Fever, No Chills Eyes: No Symptoms Ears, Nose, & Throat: No Symptoms Respiratory: No Symptoms, No Cough, No Dyspnea Cardiac: No Symptoms, No Chest Pain, No Edema, No Syncope Abdominal/Gastrointestinal: No Symptoms, No Abdominal Pain, No Nausea, No Vomiting, No Diarrhea Genitourinary Symptoms: No Symptoms, No Dysuria Musculoskeletal: No Symptoms, No Back Pain, No Neck Pain Skin: No Symptoms, No Rash Neurological: No Symptoms, No Dizziness, No Focal Weakness, No Sensory Changes Psychological: No Symptoms Endocrine: No Symptoms Hematologic/Lymphatic: No Symptoms Immunological/Allergic: No Symptoms All Other Systems: Reviewed and Negative - Past Medical History Pertinent Past Medical History: Yes Neurological History: No Pertinent History ENT History: No Pertinent History Cardiac History: No Pertinent History Respiratory History: COPD, Lung Cancer Endocrine Medical History: No Pertinent History Musculoskeletal History: No Pertinent History GI Medical History: GERD, Gallbladder Disease, Hemorrhoids History: Renal Disease Psycho-Social History: Anxiety Female Reproductive Disorders: No Pertinent History Other Medical History: radiation x10, chemo x1 - Past Surgical History Past Surgical History: Yes Neuro Surgical History: No Pertinent History Cardiac: No Pertinent History Respiratory: No Pertinent History Gastrointestinal: Cholecystectomy Genitourinary: No Pertinent History Musculoskeletal: No Pertinent History Female Surgical History: Section Other Surgical History: aaa with stent repair, carpal tunnel - Social History Smoking Status: Current every day smoker How long have you smoked: 50 years Exposure to second hand smoke: No Drug Use: none Patient Lives Alone: No - Nursing Vital Signs Nursing Vital Signs: Initial Vital Signs Temperature 98.2 F 01/12/22 19:26 Pulse Rate 86 01/12/22 19:26 Respiratory Rate 18 01/12/22 19:26 Blood Pressure 93/62 01/12/22 19:26 O2 Sat by Pulse Oximetry 98 01/12/22 19:26 Pain Scale Pain Intensity 10 - Physical Exam General Appearance: no apparent distress, alert Eyes, Ears, Nose, Throat Exam: moist mucous membranes Neck Exam: normal inspection, non-tender, supple, full range of motion Cardiovascular/Respiratory Exam: chest non-tender, normal breath sounds, regular rate/rhythm, no respiratory distress Gastrointestinal/Abdominal Exam: non-tender, soft, guarding Back Exam: normal inspection, No vertebral tenderness Hips Exam: right: non-tender, normal inspection, normal range of motion, no evidence of injury, left: pain, swelling, other (Left lower extremity neurovascular intact distally. Compartments are soft. Cap refill less than 2 seconds. PT DP pulse palpable. There is bilateral extremity pitting edema which is chronic per family.) Legs Exam: bilateral leg: non-tender, normal inspection, normal range of motion, no evidence of injury Knees Exam: bilateral knee: non-tender, normal inspection, normal range of motion, no evidence of injury Ankle Exam: bilateral ankle: non-tender, normal inspection, normal range of motion, no evidence of injury Foot Exam: bilateral foot: non-tender, normal inspection, normal range of motion, no evidence of injury Neuro/Tendon Exam: normal sensation, normal motor functions Mental Status Exam: alert, oriented x 3, cooperative Skin Exam: normal color, warm, dry SpO2 Interpretation: normal SpO2: 98 O2 Delivery: Room Air - Course Nursing assessment & vital signs reviewed: Yes - CT Exams Lower Extremity CT Interpretation: Tele-radiologist Report (No comps. Osteopenia and partially visualized femorofemoral bypass. Remaining femur negative) Ordered Tests: Active Orders 24 hr Category Date Time Status Oxygen-ED Only Nasal Cannula 2 lpm Care 01/12/22 19:28 Active LOWER EXTREMITY WO CONTRAST [CT] Stat Exams 01/12/22 19:59 Taken Medication Summary Discontinued Medications Generic Name Dose Route Start Last Admin Trade Name Caden PRN Reason Stop Dose Admin Acetaminophen 975 mg 01/12/22 20:35 01/12/22 20:51 Acetaminophen 325 Mg Tablet PO 01/12/22 20:36 975 mg STAT ONE Administration Acetaminophen Confirm 01/12/22 20:51 Acetaminophen 325 Mg Tablet Administered 01/12/22 20:52 Dose 975 mg .ROUTE .STK-MED ONE - Progress Progress: improved Progress Note: Patient reassessed. She is comfortable. Patient requesting discharge. CT left femur and hip negative for fracture dislocations. Symptoms have been ongoing for less than a day. Patient does receive physical therapy for generalized weakness. Is unclear whether or not patient's left hip was injured during therapy however it will need to be monitored. Possible MRI if symptoms do not improve. Plan of care discussed with patient and daughters were at bedside. They agree to follow-up with primary care doctor within 48 hours for evaluation. Portions of this note were created with voice recognition technology. There may be grammatical, spelling, punctuation or sound alike errors 01/12/22 21:33 Patient has Vicodin at home for pain control 01/12/22 21:34 Counseled pt/family regarding: diagnosis, need for follow-up, rad results - Departure Departure Disposition: Home Clinical Impression: Hip pain, left, Soft tissue swelling Condition: Stable Critical Care Time: No Referrals: MIGUEL TALBOT NP [Primary Care Provider] - Follow up/PCP as directed Additional Instructions: Discharge/Care Plan BETOALEC RAQUEL was seen on 01/12/22 in the Emergency Room. The patient was counseled regarding Diagnosis,Lab results, Imaging studies, need for follow up and when to return to the Emergency Room. Prescriptions given: Discharge Note I have spoken with the patient and/or caregivers. I have explained the patient's condition, diagnosis and treatment plan based on the information available to me at this time. I have answered the patient's and/or caregiver's questions and addressed any concerns. The patient and/or caregivers have as good understanding of the patient's diagnosis, condition and treatment plan as can be expected at this point. The vital signs have been stable. The patient's condition is stable and appropriate for discharge from the emergency department. The patient will pursue further outpatient evaluation with the primary care physician or other designated or consulting physician as outlined in the discharge instructions. The patient and/or caregivers are agreeable to this plan of care and follow-up instructions have been explained in detail. The patient and/or caregivers have received these instruction. The patient/and or caregivers are aware that any significant change in condition or worsening of symptoms should prompt an immediate return to this or the closest emergency department or call 911.
[2022-01-12 22:37] VITALS: BP 96/64; PULSE 74; O2SAT 95
--- NOTE | 2022-01-13 08:43 | XRAY ---
Indication: Thigh pain. Multiple contiguous axial images obtained through the left femur to include the hip and knee without contrast. Sagittal and coronal reformatted images obtained. Comparison: None Osseous structures demineralized. Tiny spurring greater trochanter. No acute fracture, dislocation, suspicious bony lesions, or osseous destructive process. Hip joint demonstrates minimal degenerative joint space narrowing. No large hip/knee effusion. Lateral hip demonstrates mild subcutaneous induration either posttraumatic versus inflammatory/infectious. Additionally, there is a subtle heterogeneous fluid collection in the deeper soft tissues directly lateral and posterior to the greater trochanter measuring at least 7.5 x 1.5 x 7.5 cm either posttraumatic hematoma versus abscess. Lack of IV contrast precludes further characterization. Incidental partially visualized sigmoid diverticulosis. Remaining visualized noncontrasted soft tissues are unremarkable. Incidental partially visualized femoral-femoral bypass graft. Impression: 1. Lateral hip subcutaneous induration with deeper subtle heterogeneous fluid collection. Findings either posttraumatic hematoma versus abscess. 2. Osteopenia, degenerative changes, sigmoid diverticulosis, and partially visualized femorofemoral bypass graft. Comment: Telephone report was given to Dr. Brush at 0838 hrs. on January 13, 2022.
== END 2022-01-12 22:27 | disposition home or self-care (01) ==
LOC: ED 19:15
DX: M25.552 Pain in left hip (principal); R60.9 Edema, unspecified; J44.9 Chronic obstructive pulmonary disease, unspecified; Z72.0 Tobacco use; Z79.899 Other long term (current) drug therapy
CPT/HCPCS: 73700; 99283; A9270-GY

== ENCOUNTER 2022-09-16 21:41 | Emergency (ER) | payer MEDICARE ==
[2022-09-16 23:22] LABS: Absolute Neutrophil Ct (ANC) 5.19 x10^3/uL (1.4-6.9); BASOPHIL % 0.5 % (0.0-0.4); Basophil (Absolute #) 0.04 x10^3/uL (0-0.4); Eosinophil % 3.1 % (0.00-5.0); Eosinophil (Absolute #) 0.25 x10^3/uL (0-0.5); Hematocrit 35.7 % (35-47); Hemoglobin 10.8 g/dL (12.0-16.0); IMMATURE GRAN # 0.02 x10^3u/L (0.00-0.03); IMMATURE GRAN % 0.2 % (0.00-0.4); Lymphocyte (Absolute #) 1.74 x10^3/uL (1.0-4.6); Lymphocytes % 21.7 % (24.0-44.0); Mean Cell Volume 100.6 fL (78-100); Mean Corpuscular Hemoglobin 30.4 pg (26-32); Mean Corpuscular Hgb Concent. 30.3 g/dL (32-36); Mean Platelet Volume 9.8 fL (7.5-11.0); Monocyte (Absolute #) 0.78 x10^3/uL (0.0-1.3); Monocytes % 9.7 % (0.0-12.0); Neutrophil % 64.8 % (36.0-66.0); Platelet Count 266 x10^3/uL (150-450); Red Blood Count 3.55 x10^6/uL (4.1-5.4); Red Cell Distribution Width 14.4 % (11.5-14.0)
[2022-09-16 23:36] LABS: ALBUMIN 3.9 g/dL (3.5-5.0); ANION GAP 10.7 MEQ/L (5-15); BILIRUBIN,TOTAL 0.3 mg/dL (0.2-1.3); Calcium 8.9 mg/dL (8.4-10.2); Creatinine 1 1.04 mg/dL (0.52-1.04); EST GLOMERULAR FILTRATION RATE 55.1 ML/MIN; Potassium 4.4 mmol/L (3.5-5.1); Total Protein 7.2 g/dL (6.3-8.2)
--- NOTE | 2022-09-17 | ERPHSYRPT ---
- History of Present Illness Time Seen by Provider: 09/16/22 22:00 Exam Limitations: no limitations Patient Subjective Stated Complaint: pt states she has been having back pain for several days. today and some last night. pt states pain has moved to her chest. states pain is now in the middle of her chest and describes as sharp Triage Nursing Assessment: pt alert and oriented, answers questions approp. pt back per wheelchair and transfers to stretcher with assist of 1. pt pursed lip breathing, states is normal for her. lung sounds diminished. heart rate80 on monitor, sinus rhythm with occasional pvcs noted. skin warm and dry. Physician History: Patient is a 76-year-old female presents to our ED for evaluation of back pain that is currently radiating to mid chest. Patient has a long smoking history. She is currently a smoker. Patient is also a lung cancer patient. Patient's symptoms started 2 to 3 days ago. Symptoms are constant. Patient observed pursed lip breathing during transfer from wheelchair to bed. Patient states this is chronic due to her COPD. Pain is mild to moderate in intensity. No specific worsening improving factors. Patient denies history of the same. Family at bedside. Patient voices no other complaints or concerns at this time. Portions of this note were created with voice recognition technology. There may be grammatical, spelling, punctuation or sound alike errors Timing/Duration: day(s) (2 to 3 days ago) Activities at Onset: none Quality: sharpness Location: substernal Chest Pain Radiation: back Severity of Pain-Max: moderate Severity of Pain-Current: mild Modifying Factors: Improves With: nothing Associated Symptoms: denies symptoms Prior Chest Pain/Cardiac Workup: no prior chest pain Nitro Today/Relief: no nitro taken today Aspirin Treatment Today: no aspirin today Allergies/Adverse Reactions: spironolactone Allergy (Intermediate, Verified 09/16/22 22:05) Rash Penicillins Allergy (Mild, Verified 09/16/22 22:05) Hives Home Medications: ALPRAZolam [Xanax 0.25 mg] 0.5 mg PO BID 08/30/13 [History] Aspirin 81 gm Chew [Baby Aspirin 81 mg Chew] 81 mg PO DAILY 08/30/13 [History] Multivitamin [Multivitamins] 1 each PO DAILY 08/30/13 [History] Albuterol Common Canister [Ventolin Common Canister] 2 puff IH Q4H PRN PRN 09/16/22 [History] Atorvastatin Calcium 10 mg PO DAILY 09/16/22 [History] Biotin 1 mg PO DAILY 09/16/22 [History] Budesonide/Glycopyr/Formoterol [Breztri Aerosphere Inhaler] 2 puffs IH BID 09/03 [History] Clopidogrel Bisulfate [Clopidogrel] 75 mg PO DAILY 09/16/22 [History] Duloxetine HCl 60 mg PO DAILY 09/16/22 [History] Folic Acid 1 mg [Folate 1 mg] 1 mg PO DAILY 09/16/22 [History] Levothyroxine Sodium 25 Mcg [Synthroid 25 Mcg] 25 mcg PO DAILY 09/16/22 [History] Midodrine HCl 2.5 mg PO TID 09/16/22 [History] Zolpidem Tartrate 5 mg [Ambien 5 MG Tablet] 5 mg PO HS 09/16/22 [History] Hx Tetanus, Diphtheria Vaccination/Date Given: Yes Hx Influenza Vaccination/Date Given: Yes Hx Pneumococcal Vaccination/Date Given: Yes Travel Risk - International Travel Have you traveled outside of the country in past 3 weeks: No - Coronavirus Screening Are you exhibiting any of the following symptoms?: No Close contact with a COVID-19 positive Pt in past 14-21 Days: No - Vaccine Status Have you recieved a Covid-19 vaccination: Yes Cal[employer]ner: Moderna - Vaccination Dates Date of 2cond Vaccination (if applicable): 2020 - Review of Systems Constitutional: No Symptoms, No Fever, No Chills Eyes: No Symptoms Ears, Nose, & Throat: No Symptoms Respiratory: No Symptoms, No Cough, No Dyspnea Cardiac: No Symptoms, No Chest Pain, No Edema, No Syncope Abdominal/Gastrointestinal: No Symptoms, No Abdominal Pain, No Nausea, No Vomiting, No Diarrhea Genitourinary Symptoms: No Symptoms, No Dysuria Musculoskeletal: No Symptoms, No Back Pain, No Neck Pain Skin: No Symptoms, No Rash Neurological: No Symptoms, No Dizziness, No Focal Weakness, No Sensory Changes Psychological: No Symptoms Endocrine: No Symptoms Hematologic/Lymphatic: No Symptoms Immunological/Allergic: No Symptoms All Other Systems: Reviewed and Negative - Past Medical History Pertinent Past Medical History: Yes Neurological History: No Pertinent History ENT History: No Pertinent History Cardiac History: No Pertinent History Respiratory History: Lung Cancer Endocrine Medical History: Hypothyroidism Musculoskeletal History: Osteoarthritis GI Medical History: GERD, Gallbladder Disease, Hemorrhoids History: Renal Disease Psycho-Social History: Anxiety Female Reproductive Disorders: No Pertinent History Other Medical History: PATIENT USES 02 AT HOME, SHE USES 2 L AT ALL TIMES. - Past Surgical History Past Surgical History: Yes Neuro Surgical History: No Pertinent History Cardiac: No Pertinent History Respiratory: No Pertinent History Gastrointestinal: Cholecystectomy Genitourinary: No Pertinent History Musculoskeletal: No Pertinent History Female Surgical History: Section Other Surgical History: aaa with stent repair, carpal tunnel, lung bx - Social History Smoking Status: Current every day smoker How long have you smoked: 50 years Exposure to second hand smoke: No Drug Use: none Patient Lives Alone: No - Nursing Vital Signs Nursing Vital Signs: Initial Vital Signs Temperature 97.8 F 09/16/22 21:42 Pulse Rate 82 09/16/22 21:42 Respiratory Rate 26 H 09/16/22 21:42 Blood Pressure 132/74 09/16/22 21:42 O2 Sat by Pulse Oximetry 100 09/16/22 21:42 Pain Scale Pain Intensity 8 - Physical Exam General Appearance: no apparent distress, alert Eye Exam: PERRL/EOMI, eyes nml inspection Ears, Nose, Throat Exam: normal ENT inspection, moist mucous membranes Neck Exam: normal inspection, non-tender, supple, full range of motion Respiratory Exam: normal breath sounds, lungs clear, No respiratory distress Cardiovascular Exam: regular rate/rhythm, normal heart sounds Gastrointestinal/Abdomen Exam: soft, No tenderness, No mass Back Exam: normal inspection, No CVA tenderness, No vertebral tenderness Extremity Exam: normal inspection, normal range of motion Neurologic Exam: alert, oriented x 3, cooperative, normal mood/affect, sensation nml, No motor deficits Skin Exam: normal color, warm, dry Lymphatic Exam: No adenopathy SpO2 Interpretation: normal SpO2: 100 O2 Delivery: Room Air - Course Nursing assessment & vital signs reviewed: Yes EKG Interpreted by Me: RATE (85), Sinus Rhythm, Left [place] Deviation, NORMAL INTERVALS - Radiology Exams Chest X-ray Interpretation: Interpreted by me (Right lower lobe mass, Port-A-Cath, COPD, calcified granuloma, osteopenia, degenerative changes) Ordered Tests: Active Orders 24 hr Category Date Time Status AMA [Release AMA] OM.NOW Care 09/17/22 01:46 Active Transmission Mechanic STAT Care 09/16/22 23:07 Active EKG-ER Only STAT Care 09/16/22 23:06 Active IV Insertion STAT Care 09/16/22 23:06 Active Pulse Oximetry (ED) STAT Care 09/16/22 23:06 Active CHEST 1 VIEW (PORTABLE) Stat Exams 09/16/22 23:41 Taken CBC W DIFF Stat Lab 09/16/22 23:19 Completed CMP Stat Lab 09/16/22 23:19 Completed D-DIMER QUANTITATIVE Stat Lab 09/16/22 23:55 Completed NT PRO BNPII Stat Lab 09/16/22 23:19 Completed TROPONIN Q4H Lab 09/16/22 23:19 Completed TROPONIN Q4H Lab 09/17/22 01:38 Completed TROPONIN Q4H Lab 09/17/22 07:15 Ordered Medication Summary Generic Name Dose Route Start Last Admin Trade Name Freq PRN Reason Stop Dose Admin Heparin Sodium (Beef Lung) 500 units 09/17/22 01:46 09/17/22 01:50 Heparin Lock Flush Pf 500 Units/5 Ml Syringe PICC 10/17/22 01:45 500 units PRN PRN Administration IV PORT FLUSH Discontinued Medications Generic Name Dose Route Start Last Admin Trade Name Freq PRN Reason Stop Dose Admin Ketorolac Tromethamine 30 mg 09/17/22 00:12 09/17/22 00:20 Ketorolac Tromethamine 30 Mg/Ml Inj IV 09/17/22 00:13 30 mg STAT ONE Administration Ketorolac Tromethamine Confirm 09/17/22 00:19 Ketorolac Tromethamine 30 Mg/Ml Inj Administered 09/17/22 00:20 Dose 30 mg .ROUTE .STK-MED ONE Lab/Rad Data: Laboratory Result Diagrams 09/16/22 23:19 09/16/22 23:19 Laboratory Results 09/17/22 09/16/22 09/16/22 Range/Units 01:38 23:55 23:19 WBC (4.0-10.5) x10^3/uL RBC (4.1-5.4) x10^6/uL Hgb (12.0-16.0) g/dL Hct (35-47) % MCV (78-100) fL MCH (26-32) pg MCHC (32-36) g/dL RDW (11.5-14.0) % Plt Count (150-450) x10^3/uL MPV (7.5-11.0) fL Gran % (36.0-66.0) % Immature Gran % (Auto) (0.00-0.4) % Nucleat RBC Rel Count (0.00-0.1) % Eos # (Auto) (0-0.5) x10^3/uL Immature Gran # (Auto) (0.00-0.03) x10^3u/L Absolute Lymphs (auto) (1.0-4.6) x10^3/uL Absolute Monos (auto) (0.0-1.3) x10^3/uL Absolute Nucleated RBC (0.00-0.01) x10^3u/L Lymphocytes % (24.0-44.0) % Monocytes % (0.0-12.0) % Eosinophils % (0.00-5.0) % Basophils % (0.0-0.4) % Absolute Granulocytes (1.4-6.9) x10^3/uL Basophils # (0-0.4) x10^3/uL D-Dimer 3.02 H* (0.0-0.50) mg/L Sodium (137-145) mmol/L Potassium (3.5-5.1) mmol/L Chloride (98-107) mmol/L Carbon Dioxide (22-30) mmol/L Anion Gap (5-15) MEQ/L BUN (7-17) mg/dL Creatinine (0.52-1.04) mg/dL Estimated GFR ML/MIN Glucose (74-106) mg/dL Calcium (8.4-10.2) mg/dL Total Bilirubin (0.2-1.3) mg/dL AST (14-36) U/L ALT (0-35) U/L Alkaline Phosphatase (38-126) U/L Troponin I < 0.012 (0.000-0.034) ng/mL NT-Pro-B Natriuret Pep 328 (<300) pg/mL Serum Total Protein (6.3-8.2) g/dL Albumin (3.5-5.0) g/dL 09/16/22 09/16/22 09/16/22 Range/Units 23:19 23:19 23:19 WBC 8.0 (4.0-10.5) x10^3/uL RBC 3.55 L (4.1-5.4) x10^6/uL Hgb 10.8 L (12.0-16.0) g/dL Hct 35.7 (35-47) % MCV 100.6 H (78-100) fL MCH 30.4 (26-32) pg MCHC 30.3 L (32-36) g/dL RDW 14.4 H (11.5-14.0) % Plt Count 266 (150-450) x10^3/uL MPV 9.8 (7.5-11.0) fL Gran % 64.8 (36.0-66.0) % Immature Gran % (Auto) 0.2 (0.00-0.4) % Nucleat RBC Rel Count 0.0 (0.00-0.1) % Eos # (Auto) 0.25 (0-0.5) x10^3/uL Immature Gran # (Auto) 0.02 (0.00-0.03) x10^3u/L Absolute Lymphs (auto) 1.74 (1.0-4.6) x10^3/uL Absolute Monos (auto) 0.78 (0.0-1.3) x10^3/uL Absolute Nucleated RBC 0.00 (0.00-0.01) x10^3u/L Lymphocytes % 21.7 L (24.0-44.0) % Monocytes % 9.7 (0.0-12.0) % Eosinophils % 3.1 (0.00-5.0) % Basophils % 0.5 (0.0-0.4) % Absolute Granulocytes 5.19 (1.4-6.9) x10^3/uL Basophils # 0.04 (0-0.4) x10^3/uL D-Dimer (0.0-0.50) mg/L Sodium 139 (137-145) mmol/L Potassium 4.4 (3.5-5.1) mmol/L Chloride 103 (98-107) mmol/L Carbon Dioxide 29 (22-30) mmol/L Anion Gap 10.7 (5-15) MEQ/L BUN 25 H (7-17) mg/dL Creatinine 1.04 (0.52-1.04) mg/dL Estimated GFR 55.1 ML/MIN Glucose 95 (74-106) mg/dL Calcium 8.9 (8.4-10.2) mg/dL Total Bilirubin 0.30 (0.2-1.3) mg/dL AST 27 (14-36) U/L ALT 17 (0-35) U/L Alkaline Phosphatase 93 (38-126) U/L Troponin I < 0.012 (0.000-0.034) ng/mL NT-Pro-B Natriuret Pep (<300) pg/mL Serum Total Protein 7.2 (6.3-8.2) g/dL Albumin 3.9 (3.5-5.0) g/dL - Progress Progress: improved Air Movement: good Progress Note: Patient is a 76-year-old female presents to our ED for evaluation of back pain that radiates anteriorly to her chest. Patient has history of lung cancer. Physical exam reveals some tenderness to the anterior chest wall. Test ordered include chest x-ray which essentially unchanged from previous. CBC CMP ordered. CBC shows a macrocytic anemia of hemoglobin 10.8. D-dimer positive at 3.02. We were able to obtain CAT scan performed yesterday at [facility]. Patient had a CAT scan then with contrast. That particular CAT scan showed no large central or lobar pulmonary artery 3 filling defect. Troponin negative x2. Patient received a dose of Toradol for pain control. Pain significantly improved. Patient left AMA however. Patient did not want to wait for the second troponin. EKG showed no ischemic changes. Patient agrees to follow-up with primary care doctor within 48 hours for reevaluation. Patient's daughters are at her bedside. Patient is of sound mind. Patient is appropriate to make informed and indepen dent medical decisions. Patient understands that leaving AGAINST MEDICAL ADVICE can result in delayed diagnosis, increased risk of morbidity, mortality, short and long-term disability including . In spite of these risks, patient has decided to leave AGAINST MEDICAL ADVICE. Patient understands that she may return to our ED at any point if she reconsiders. Patient agrees to follow-up with his or her primary care doctor within 48 hours for reevaluation. Patient voices no other complaints or concerns at this time. We will release patient AGAINST MEDICAL ADVICE per their request. Complexity of problem addressed is moderate, acute complicated No critical care time Complexity of data reviewed and analyzed is moderate. Test ordered test independently reviewed and analyzed. Chest x-ray reviewed and analyzed by Dr. Crowder. No significant change from previous. We obtained a CAT scan report of chest abdomen pelvis with contrast from an outside hospital. CT report from [facility] shows stable right lower lobe pleural-based mass with associated pathologic fractures of the right posterior seventh and eighth rib. No interval change in adjacent right lung infiltrate which may relate to posttreatment change or infection/inflammation. Stable nodule in the left lower lobe. No findings of metastatic disease in the abdomen and pelvis. New mild compression fractures of L2, L12 and T11 with approximately 30% maximal height loss and no spinal canal compromise. Chronic additional findings as above including 6 cm AAA Risk of complication and or risk morbidity/mortality of patient management is moderate. No social determinants of health present to impede follow-up. Plan of care established via shared decision making. Vital stable. Patient discharge AMA because she said she did not want to wait for her second troponin. Portions of this note were created with voice recognition technology. There may be grammatical, spelling, punctuation or sound alike errors 09/17/22 02:25 Blood Culture(s) Obtained: No Antibiotics given: No Counseled pt/family regarding: lab results, diagnosis, need for follow-up, rad results - Departure Departure Disposition: Home Clinical Impression: Back pain, Chest pain, Spinal compression fracture Condition: Stable Critical Care Time: No Referrals: MIGUEL TALBOT NP [Primary Care Provider] - Follow up/PCP as directed Instructions: Chest Pain (DC) Additional Instructions: Discharge/Care Plan BETOALEC RAQUEL was seen on 09/17/22 in the Emergency Room. The patient was counseled regarding Diagnosis,Lab results, Imaging studies, need for follow up and when to return to the Emergency Room. Prescriptions given: Discharge Note I have spoken with the patient and/or caregivers. I have explained the patient's condition, diagnosis and treatment plan based on the information available to me at this time. I have answered the patient's and/or caregiver's questions and addressed any concerns. The patient and/or caregivers have as good understanding of the patient's diagnosis, condition and treatment plan as can be expected at this point. The vital signs have been stable. The patient's condition is stable and appropriate for discharge from the emergency department. The patient will pursue further outpatient evaluation with the primary care physician or other designated or consulting physician as outlined in the discharge instructions. The patient and/or caregivers are agreeable to this plan of care and follow-up instructions have been explained in detail. The patient and/or caregivers have received these instruction. The patient/and or caregivers are aware that any significant change in condition or worsening of symptoms s hould prompt an immediate return to this or the closest emergency department or call 911.
[2022-09-17] MEDS ORDERED: TORAdol 30 mg Injection IV ONE (00:12)
[2022-09-17] MEDS ORDERED: TORAdol 30 mg Injection ONE (00:19)
[2022-09-17 01:39] VITALS: BP 143/69; PULSE 82; O2SAT 100
--- NOTE | 2022-09-17 08:48 | XRAY ---
Indication: Chest pain. Comparison: December 24, 2021 Portable chest again demonstrates CT proven right lower lobe mass, COPD, and scattered calcified granulomas. Remaining heart and lungs unremarkable again with right Port-A-Cath. Bony thorax intact again with osteopenia and mild degenerative changes. No new cardiopulmonary abnormalities.
== END 2022-09-17 02:06 | disposition left against medical advice (07) ==
LOC: ED 21:41
DX: R07.9 Chest pain, unspecified (principal); M54.9 Dorsalgia, unspecified; M48.55XA Collapsed vertebra, not elsewhere classified, thoracolumbar region, initial encounter for fracture; J44.9 Chronic obstructive pulmonary disease, unspecified; Z79.02 Long term (current) use of antithrombotics/antiplatelets; Z79.899 Other long term (current) drug therapy; Z99.81 Dependence on supplemental oxygen; Z72.0 Tobacco use
CPT/HCPCS: 36000; 36415; 71045; 80053; 83880; 84484; 85025; 85379; 93005; 93041; 94760; 96374; 99284; J1642; J1885

== ENCOUNTER 2022-11-03 10:42 | Emergency (ER) | payer MEDICARE ==
[2022-11-03 11:07] VITALS: TEMP 97.1
--- NOTE | 2022-11-03 11:43 | ERPHSYRPT ---
- History of Present Illness Time Seen by Provider: 11/03/22 10:54 Source: patient Exam Limitations: no limitations Patient Subjective Stated Complaint: Pt states "I fell on tuesday and I fell again yesterday and I hurt all on the right side and on my head." Triage Nursing Assessment: Pt presented alert and oriented X 3, skin pwd. Pt ambulates with a slow gait, able to speak in clear full sentences. Pt has pain and tenderness noted to right shoulder, right hip and head. multiple bruises noted. Physician History: Patient is here after a fall. Patient states that she has had multiple falls over the past few days. States that she has felt off balance. Yesterday patient was reaching for her mailbox and fell backwards hitting her head on the concrete. They deny being on any blood thinners. Patient is on aspirin. Now having right hip pain, right elbow pain, head laceration. Allergies/Adverse Reactions: spironolactone Allergy (Intermediate, Verified 09/16/22 22:05) Rash Penicillins Allergy (Mild, Verified 09/16/22 22:05) Hives Home Medications: ALPRAZolam [Xanax 0.25 mg] 0.5 mg PO BID 08/30/13 [History] Aspirin 81 gm Chew [Baby Aspirin 81 mg Chew] 81 mg PO DAILY 08/30/13 [History] Multivitamin [Multivitamins] 1 each PO DAILY 08/30/13 [History] Albuterol Common Canister [Ventolin Common Canister] 2 puff IH Q4H PRN PRN 09/16/22 [History] Atorvastatin Calcium 10 mg PO DAILY 09/16/22 [History] Biotin 1 mg PO DAILY 09/16/22 [History] Budesonide/Glycopyr/Formoterol [Breztri Aerosphere Inhaler] 2 puffs IH BID 09/16/22 [History] Clopidogrel Bisulfate [Clopidogrel] 75 mg PO DAILY 09/16/22 [History] Duloxetine HCl 60 mg PO DAILY 09/16/22 [History] Folic Acid 1 mg [Folate 1 mg] 1 mg PO DAILY 09/16/22 [History] Levothyroxine Sodium 25 Mcg [Synthroid 25 Mcg] 25 mcg PO DAILY 09/16/22 [History] Midodrine HCl 2.5 mg PO TID 09/16/22 [History] Hydrocodone/Acetaminophen [Hydrocodone-Acetamin 5-325 mg] 1 each PO DAILY 11/03/22 [History] Morphine Sulfate [Morphine Sulfate ER] 10 mg PO BID 11/03/22 [History] Hx Tetanus, Diphtheria Vaccination/Date Given: No Hx Influenza Vaccination/Date Given: Yes Hx Pneumococcal Vaccination/Date Given: Yes Immunizations Up to Date: Yes Travel Risk - International Travel Have you traveled outside of the country in past 3 weeks: No - Coronavirus Screening Are you exhibiting any of the following symptoms?: No Close contact with a COVID-19 positive Pt in past 14-21 Days: No - Vaccine Status Have you recieved a Covid-19 vaccination: Yes [employer]: Moderna - Vaccination Dates Date of 2cond Vaccination (if applicable): 2020 - Review of Systems Constitutional: No Fever, No Chills Eyes: No Symptoms Ears, Nose, & Throat: No Symptoms Respiratory: No Cough, No Dyspnea Cardiac: No Chest Pain, No Edema, No Syncope Abdominal/Gastrointestinal: No Abdominal Pain, No Nausea, No Vomiting, No Diarrhea Genitourinary Symptoms: No Dysuria Musculoskeletal: No Back Pain, No Neck Pain Skin: Other (Head laceration), No Rash Neurological: No Dizziness, No Focal Weakness, No Sensory Changes Psychological: No Symptoms Endocrine: No Symptoms All Other Systems: Reviewed and Negative - Past Medical History Pertinent Past Medical History: Yes Neurological History: No Pertinent History ENT History: No Pertinent History Cardiac History: No Pertinent History Respiratory History: Lung Cancer Endocrine Medical History: Hypothyroidism Musculoskeletal History: Osteoarthritis GI Medical History: GERD, Gallbladder Disease, Hemorrhoids History: Renal Disease Psycho-Social History: Anxiety Female Reproductive Disorders: No Pertinent History Other Medical History: PATIENT USES 02 AT HOME, SHE USES 2 L AT ALL TIMES. - Past Surgical History Past Surgical History: Yes Neuro Surgical History: No Pertinent History Cardiac: No Pertinent History Respiratory: No Pertinent History Gastrointestinal: Cholecystectomy Genitourinary: No Pertinent History Musculoskeletal: No Pertinent History Female Surgical History: Section Other Surgical History: aaa with stent repair, carpal tunnel, lung bx - Social History Smoking Status: Current every day smoker How long have you smoked: 50 years Exposure to second hand smoke: No Drug Use: none Patient Lives Alone: No - Nursing Vital Signs Nursing Vital Signs: Initial Vital Signs Temperature 97.1 F 11/03/22 11:02 Pulse Rate 100 H 11/03/22 11:02 Respiratory Rate 20 11/03/22 11:02 Blood Pressure 124/64 11/03/22 11:02 O2 Sat by Pulse Oximetry 93 L 11/03/22 11:02 Pain Scale Pain Intensity 3 - Physical Exam SpO2: 100 Comments: 11/03/22 11:41 Physical Exam Vitals signs and nursing note reviewed. Constitutional: Appearance: Patient is well-developed. HENT: Head: Normocephalic and 4 cm laceration posterior scalp. clean and linear Eyes: Conjunctiva/sclera: Conjunctivae normal. Neck: Trachea: No tracheal deviation. Cardiovascular: Rate and Rhythm: Normal rate. Pulmonary: Effort: Pulmonary effort is normal. No respiratory distress. Abdominal: Palpations: Abdomen is soft. Musculoskeletal: General: Right elbow tenderness, right hip tenderness. No obvious deformity, sensation intact, 2+ capillary refill, 2 point tactile discrimination intact. 5 out of 5 strength. Full range of motion without pain. Compartments are soft, nontender. Overlying skin shows no tenting, bruising, ecchymosis. Skin: General: Skin is warm and dry. Neurological: Mental Status: Patient is alert and oriented to person, place, and time, behavior normal. 11/03/22 14:31 Procedures - Laceration/Wound Repair Head Wound Location: head Wound Length (cm): 4 Wound's Depth, Shape: superficial Wound Explored: clean Irrigated: Yes Hibiclens Prep: Yes Wound Repaired With: Nicole Number of Sutures: 5 Layer Closure?: No Sterile Dressing Applied?: Yes Splint Applied?: No Sling Applied?: No - Course Nursing assessment & vital signs reviewed: Yes EKG Interpreted by Me: Sinus Rhythm Ordered Tests: Active Orders 24 hr Category Date Time Status EKG-ER Only STAT Care 11/03/22 11:07 Completed CERVICAL SPINE WO CONTRAST [CT] Stat Exams 11/03/22 11:06 Completed CHEST 2 VIEWS (PA AND LAT) Stat Exams 11/03/22 11:07 Completed ELBOW (MINIMUM 3 VIEWS) Stat Exams 11/03/22 11:07 Completed HEAD WITHOUT CONTRAST [CT] Stat Exams 11/03/22 11:06 Completed HIP UNI (2V) INCL PEL IF DONE Stat Exams 11/03/22 11:08 Completed CBC W DIFF Stat Lab 11/03/22 11:44 Completed CMP Stat Lab 11/03/22 11:44 Completed TROPONIN Q4H Lab 11/03/22 11:44 Completed TROPONIN Q4H Lab 11/03/22 15:15 Ordered TROPONIN Q4H Lab 11/03/22 19:15 Ordered Lab/Rad Data: Laboratory Result Diagrams 11/03/22 11:44 11/03/22 11:44 Laboratory Results 11/03/22 11/03/22 11/03/22 Range/Units 11:44 11:44 11:44 WBC 12.3 H (4.0-10.5) x10^3/uL RBC 2.87 L (4.1-5.4) x10^6/uL Hgb 8.6 L (12.0-16.0) g/dL Hct 28.7 L (35-47) % MCV 100.0 (78-100) fL MCH 30.0 (26-32) pg MCHC 30.0 L (32-36) g/dL RDW 15.4 H (11.5-14.0) % Plt Count 234 (150-450) x10^3/uL MPV 9.3 (7.5-11.0) fL Gran % 82.5 H (36.0-66.0) % Immature Gran % (Auto) 0.9 H (0.00-0.4) % Nucleat RBC Rel Count 0.0 (0.00-0.1) % Eos # (Auto) 0.07 (0-0.5) x10^3/uL Immature Gran # (Auto) 0.11 H (0.00-0.03) x10^3u/L Absolute Lymphs (auto) 1.12 (1.0-4.6) x10^3/uL Absolute Monos (auto) 0.81 (0.0-1.3) x10^3/uL Absolute Nucleated RBC 0.00 (0.00-0.01) x10^3u/L Lymphocytes % 9.1 L (24.0-44.0) % Monocytes % 6.6 (0.0-12.0) % Eosinophils % 0.6 (0.00-5.0) % Basophils % 0.3 (0.0-0.4) % Absolute Granulocytes 10.11 H (1.4-6.9) x10^3/uL Basophils # 0.04 (0-0.4) x10^3/uL Sodium 139 (137-145) mmol/L Potassium 4.1 (3.5-5.1) mmol/L Chloride 102 (98-107) mmol/L Carbon Dioxide 28 (22-30) mmol/L Anion Gap 14.0 (5-15) MEQ/L BUN 24 H (7-17) mg/dL Creatinine 1.57 H (0.52-1.04) mg/dL Estimated GFR 34.1 ML/MIN Glucose 121 H (74-106) mg/dL Calcium 8.7 (8.4-10.2) mg/dL Total Bilirubin 0.80 (0.2-1.3) mg/dL AST 32 (14-36) U/L ALT 24 (0-35) U/L Alkaline Phosphatase 112 (38-126) U/L Troponin I < 0.012 (0.000-0.034) ng/mL Serum Total Protein 6.5 (6.3-8.2) g/dL Albumin 3.6 (3.5-5.0) g/dL - Progress Progress: improved Progress Note: 11/03/22 11:42 Differential diagnosis includes electrolyte abnormalities, arrhythmia, head b leed, fracture, other injury. Plan for head CT, CT C-spine, appropriate x-rays, basic labs, EKG 11/03/22 14:35 Imaging returned without obvious fracture or other injury. Patient does have an elevated creatinine, low hemoglobin. I did discuss this with the patient and the adult daughter. This alone with falls I do believe warrants a admission to the hospital. Certainly we should do a rectal exam as well. Patient states that she has had low hemoglobin in the past. Although her creatinine is elevated from her baseline she has had some elevated creatinines in the past. Patient ultimately declined a rectal exam, declined admission to the hospital. I do recommend that she continues aggressive hydration, outpatient follow-up at home. She may need to return here sooner for any new or changing symptoms. - Departure Departure Disposition: Home Clinical Impression: Laceration of head, REDDY (acute kidney injury), Low hemoglobin, Falls Condition: Stable Critical Care Time: No Referrals: TALBOT,MIGUEL, ATTENDANCE OFFICER [Primary Care Provider] - Follow up/PCP as directed Instructions: Contusion (DC), Preventing falls in adults Additional Instructions: You should probably be admitted today for your low hemoglobin, elevated kidney function. You may return here at any point in time to be admitted should you return. Until then follow-up closely with your PCP. Have your sutures removed in 7 days. You may return here sooner for new or changing symptoms.
[2022-11-03 11:48] LABS: Absolute Neutrophil Ct (ANC) 10.11 x10^3/uL (1.4-6.9); BASOPHIL % 0.3 % (0.0-0.4); Basophil (Absolute #) 0.04 x10^3/uL (0-0.4); Eosinophil % 0.6 % (0.00-5.0); Eosinophil (Absolute #) 0.07 x10^3/uL (0-0.5); Hematocrit 28.7 % (35-47); Hemoglobin 8.6 g/dL (12.0-16.0); IMMATURE GRAN # 0.11 x10^3u/L (0.00-0.03); IMMATURE GRAN % 0.9 % (0.00-0.4); Lymphocyte (Absolute #) 1.12 x10^3/uL (1.0-4.6); Lymphocytes % 9.1 % (24.0-44.0); Mean Platelet Volume 9.3 fL (7.5-11.0); Monocyte (Absolute #) 0.81 x10^3/uL (0.0-1.3); Monocytes % 6.6 % (0.0-12.0); Neutrophil % 82.5 % (36.0-66.0); Platelet Count 234 x10^3/uL (150-450); Red Blood Count 2.87 x10^6/uL (4.1-5.4); Red Cell Distribution Width 15.4 % (11.5-14.0); White Blood Count 12.3 x10^3/uL (4.0-10.5)
[2022-11-03 12:10] LABS: ALBUMIN 3.6 g/dL (3.5-5.0); BILIRUBIN,TOTAL 0.8 mg/dL (0.2-1.3); Calcium 8.7 mg/dL (8.4-10.2); Creatinine 1 1.57 mg/dL (0.52-1.04); EST GLOMERULAR FILTRATION RATE 34.1 ML/MIN; Potassium 4.1 mmol/L (3.5-5.1); Total Protein 6.5 g/dL (6.3-8.2)
--- NOTE | 2022-11-03 13:04 | XRAY ---
Indication: Head injury following fall. Multiple contiguous axial images obtained through the head without contrast. Comparison: None Age-appropriate global atrophy and mild periventricular degenerative micro-ischemia bilaterally. No acute intracranial hemorrhage, abnormal extra-axial fluid collection, or mass effect. Fourth ventricle is midline without hydrocephalus. Bony calvarium intact. Visualized paranasal sinuses and mastoid air cells are clear. Impression: Nonacute senile brain.
--- NOTE | 2022-11-03 13:06 | XRAY ---
Indication: Headache injury following fall. Multiple contiguous axial images obtained through the cervical spine. Sagittal and coronal reformatted images obtained. Comparison: None Age-related osteopenia. Axial images negative for acute fracture, suspicious bony lesions, or spinal canal stenosis. Minimal/mild C3-C6 degenerative endplate spurring. Mild multilevel bilateral degenerative facet hypertrophy, left greater than right. Sagittal and coronal reformatted images demonstrate lordotic straightening, positional versus paraspinal spasm. C3-C6 disc space narrowing. No acute compression fracture, subluxation, or jumped facet. Normal appearing craniocervical junction. Visualized noncontrasted soft tissues demonstrates diffuse centrilobular pulmonary emphysema and incompletely visualized right Port-A-Cath. Impression: 1. Negative acute fracture. Lordotic straightening, positional versus paraspinal spasm. 2. Chronic findings including osteopenia, multilevel degenerative spondylosis, and pulmonary emphysema.
--- NOTE | 2022-11-03 13:14 | XRAY ---
Indication: Status post fall. Comparison: None 3 view right elbow demonstrates osteopenia. No other bony, articular, or soft tissue abnormalities.
--- NOTE | 2022-11-03 13:14 | XRAY ---
Indication: Status post fall. Comparison: October 25, 2022 AP/lateral chest remains clear again with COPD. Heart not enlarged again with right Port-A-Cath and chunky mediastinal calcified nodes. Bony thorax intact again with osteopenia and mild degenerative changes. Impression: Continued nonacute chest with chronic features.
--- NOTE | 2022-11-03 13:16 | XRAY ---
Indication: Status post fall. Comparison: None AP pelvis and 2 view right hip demonstrates osteopenia, mild/moderate scattered arteriosclerotic disease, incompletely visualized distal AAA with aortic right iliac stents, and tiny right gluteal calcified injection granulomas. No other bony, articular, or soft tissue abnormalities.
[2022-11-03 13:38] VITALS: BP 120/74; RESP 20
[2022-11-03 13:48] VITALS: PULSE 68
[2022-11-03 14:35] VITALS: O2SAT 100
== END 2022-11-03 14:02 | disposition home or self-care (01) ==
LOC: ED 10:42
DX: S01.01XA Laceration without foreign body of scalp, initial encounter (principal); W18.30XA Fall on same level, unspecified, initial encounter; Z91.81 History of falling; Y92.007 Garden or yard of unspecified non-institutional (private) residence as the place of occurrence of the external cause; N17.9 Acute kidney failure, unspecified; D64.9 Anemia, unspecified; M25.551 Pain in right hip; M25.521 Pain in right elbow; Z79.02 Long term (current) use of antithrombotics/antiplatelets; Z79.891 Long term (current) use of opiate analgesic; Z79.899 Other long term (current) drug therapy; Z72.0 Tobacco use; Z99.81 Dependence on supplemental oxygen
CPT/HCPCS: 12002; 36415; 70450; 71046; 72125; 73080; 73502; 80053; 84484; 85025; 93005; 99284

== ENCOUNTER 2023-11-20 18:21 | Emergency (ER) | payer MEDICARE ==
[2023-11-20 18:50] VITALS: TEMP 98.4
--- NOTE | 2023-11-20 19:09 | ERPHSYRPT ---
- History of Present Illness Source: patient Exam Limitations: no limitations Patient Subjective Stated Complaint: Weakness Triage Nursing Assessment: Patient brought into ED per w/c and transferred to bed with assist of 1. Patient A+O X 3. Patient's skin pink, warm and dry. Patient's started not feeling well Th night and was really tired. Patient has not been eating or drinking since Tuesday. Patient wears home O2 at 4 liters per N/C. Patient has had increased SOB and non productive cough. Patient's lungs noted to be coarse and wheezing. Patient denies pain or discomfort. Patient had home covid test + today. Hx Tetanus, Diphtheria Vaccination/Date Given: No Hx Influenza Vaccination/Date Given: No Hx Pneumococcal Vaccination/Date Given: Yes Immunizations Up to Date: Yes <RAHUL CASTELLANOS - Last Filed: 11/20/23 19:04> <QUYNH LAUREN - Last Filed: 11/20/23 22:09> - History of Present Illness Time Seen by Provider: 11/20/23 18:50 Physician History: Pt has had fatigue and coughing for the past 3 days; decreased appetite and 99.9 degree fever 2 days ago; positive COVID test today. Pt denies chest pain, vomiting, abdominal pain. (RAHUL CASTELLANOS) Allergies/Adverse Reactions: spironolactone Allergy (Intermediate, Verified 11/20/23 18:35) Rash Penicillins Allergy (Mild, Verified 11/20/23 18:35) Hives Home Medications: ALPRAZolam [Xanax 0.25 mg] 0.5 mg PO BID 08/30/13 [History] Aspirin 81 gm Chew [Baby Aspirin 81 mg Chew] 81 mg PO DAILY 08/30/13 [History] Multivitamin [Multivitamins] 1 each PO DAILY 08/30/13 [History] Albuterol Common Canister [Ventolin Common Canister] 2 puff IH Q4H PRN PRN 09/16/22 [History] Atorvastatin Calcium 10 mg PO DAILY 09/16/22 [History] Biotin 1 mg PO DAILY 09/16/22 [History] Clopidogrel Bisulfate [Clopidogrel] 75 mg PO DAILY 09/16/22 [History] Duloxetine HCl 60 mg PO DAILY 09/16/22 [History] Levothyroxine Sodium 25 Mcg [Synthroid 25 Mcg] 25 mcg PO DAILY 09/16/22 [History] Midodrine HCl 2.5 mg PO TID 09/16/22 [History] Acetaminophen [Tylenol Arthritis] 1,300 mg PO DAILY 11/20/23 [History] Calcium Carb/Vit D3/Minerals [Calcium 600+D Plus Minerals Tb] 2 tab PO DAILY 11/20/23 [History] Cyanocobalamin (Vitamin B-12) [Vitamin B-12] 1,000 mcg PO DAILY 11/20/23 [History] Morphine Sulfate [Morphine Sulfate ER] 15 mg PO Q12H 11/20/23 [History] Vitamin E 400 Units [Vitamin E 400 UNIT SOFTGEL] 400 unit PO DAILY 11/19 [History] diphenhydrAMINE HCL [Sleep Aid] 50 mg PO HS 11/20/23 [History] Travel Risk - International Travel Have you traveled outside of the country in past 3 weeks: No - Emerging Infectious Disease Are you exhibiting symptoms associated with any current EIDs: No <RAHUL CASTELLANOS - Last Filed: 11/20/23 19:04> - Review of Systems Constitutional: Fever, Fatigue Ears, Nose, & Throat: No Ear Pain Respiratory: Dyspnea (chronically(on home oxygen 4L/min)) Cardiac: No Chest Pain Abdominal/Gastrointestinal: No Abdominal Pain, No Vomiting Genitourinary Symptoms: No Dysuria Skin: No Rash Neurological: No Headache <RAHUL CASTELLANOS - Last Filed: 11/20/23 19:04> - Past Medical History Pertinent Past Medical History: Yes Neurological History: No Pertinent History ENT History: No Pertinent History Cardiac History: No Pertinent History Respiratory History: Lung Cancer Endocrine Medical History: Hypothyroidism Musculoskeletal History: Osteoarthritis GI Medical History: GERD, Gallbladder Disease, Hemorrhoids History: Renal Disease Psycho-Social History: Anxiety Female Reproductive Disorders: No Pertinent History Other Medical History: PATIENT USES 02 AT HOME, SHE USES 2 L AT ALL TIMES. - Past Surgical History Past Surgical History: Yes Neuro Surgical History: No Pertinent History Cardiac: No Pertinent History Respiratory: No Pertinent History Gastrointestinal: Cholecystectomy Genitourinary: No Pertinent History Musculoskeletal: No Pertinent History Female Surgical History: Section Other Surgical History: aaa with stent repair, carpal tunnel, lung bx - Social History Smoking Status: Former smoker How long have you smoked: 50 years Exposure to second hand smoke: No Drug Use: none Patient Lives Alone: No - Social Determinants of Health Will the patient participate in the screening: Yes Do you worry about a steady place to live?: No Do you have any problems with any of the following?: No known problems In the past 12 months,have you had to go without utilities?: No Transportation Issues: No Has anyone in your support network made you feel unsafe?: No Have you or anyone in your house had to go without enough: No <RAHUL CASTELLANOS - Last Filed: 11/20/23 19:04> - Physical Exam General Appearance: alert Eye Exam: eyes nml inspection Ears, Nose, Throat Exam: dry mucous membranes, other (cerumen occlusion of left ear) Neck Exam: normal inspection Respiratory Exam: wheezing (moderate diffuse coarse wheezing) Cardiovascular Exam: No friction rub Gastrointestinal/Abdomen Exam: normal bowel sounds Extremity Exam: No pedal edema Neurologic Exam: alert, oriented x 3, cooperative Skin Exam: warm, dry, No cyanosis SpO2 Interpretation: normal SpO2: 100 O2 Delivery: Nasal Cannula (4L/min) <RAHUL CASTELLANOS - Last Filed: 11/20/23 19:04> - Nursing Vital Signs Nursing Vital Signs: Initial Vital Signs Temperature 98.4 F 11/20/23 18:37 Pulse Rate 81 11/20/23 18:37 Respiratory Rate 20 11/20/23 18:37 Blood Pressure 130/68 11/20/23 18:37 O2 Sat by Pulse Oximetry 100 11/20/23 18:37 Pain Scale Pain Intensity 0 - Course Nursing assessment & vital signs reviewed: Yes <RAHUL CASTELLANOS - Last Filed: 11/20/23 19:04> - Course EKG Interpreted by Me: RATE (69), Sinus Rhythm, Other (no acute ST changes, not suggestive of ischemia, [id number]) <QUYNH LAUREN - Last Filed: 11/20/23 22:09> Ordered Tests: Active Orders 24 hr Category Date Time Status EKG-ER Only STAT Care 11/20/23 19:10 Active IV Insertion STAT Care 11/20/23 19:10 Active CHEST 2 VIEWS (PA AND LAT) Stat Exams 11/20/23 19:11 Taken CBC W DIFF Stat Lab 11/20/23 19:29 Completed CMP Stat Lab 11/20/23 19:29 Completed CULTURE,URINE Stat Lab 11/20/23 21:12 Received MAGNESIUM Stat Lab 11/20/23 19:29 Completed TROPONIN Q4H Lab 11/20/23 19:29 Completed TROPONIN Q4H Lab 11/20/23 23:15 Ordered TROPONIN Q4H Lab 11/21/23 03:15 Ordered UA W/RFX UR CULTURE Stat Lab 11/20/23 21:12 Completed Respiratory Therapy Assessment DAILY RT 11/20/23 20:01 Active Medication Summary Generic Name Dose Route Start Last Admin Trade Name Freq PRN Reason Stop Dose Admin Heparin Sodium (Beef Lung) 500 units 11/20/23 21:49 11/20/23 21:50 Heparin Lock Flush Pf 500 Units/5 Ml Syringe PORT FLUSH 12/20/23 21:48 500 units PRN PRN Administration IV PORT FLUSH Discontinued Medications Generic Name Dose Route Start Last Admin Trade Name Freq PRN Reason Stop Dose Admin Albuterol Sulfate 2.5 mg 11/20/23 19:13 11/20/23 19:31 Albuterol Sulfate 2.5 Mg/3 Ml Neb IH 11/20/23 19:14 2.5 mg STAT ONE Administration Albuterol Sulfate Confirm 11/20/23 19:18 Albuterol Sulfate 2.5 Mg/3 Ml Neb Administered 11/20/23 19:19 Dose 2.5 mg IH .STK-MED ONE Sodium Chloride 1,000 mls @ 999 mls/hr 11/20/23 19:10 11/20/23 19:35 Sodium Chloride 0.9% 1000 Ml IV 11/20/23 20:10 999 mls/hr .Q1H1M STA Administration Sodium Chloride Confirm 11/20/23 19:34 Sodium Chloride 0.9% 1000 Ml Administered 11/20/23 19:35 Dose 1,000 mls @ ud .ROUTE .STK-MED ONE Nitrofurantoin Macrocrystals 100 mg 11/20/23 21:44 11/20/23 21:46 Nitrofurantoin Macro 100 Mg Capsule PO 11/20/23 21:45 100 mg STAT ONE Administration Nitrofurantoin Macrocrystals Confirm 11/20/23 21:46 Nitrofurantoin Macro 100 Mg Capsule Administered 11/20/23 21:47 Dose 100 mg .ROUTE .STK-MED ONE Nitrofurantoin Macrocrystals Confirm 11/20/23 21:57 Nitrofurantoin Macro 100 Mg Capsule Administered 11/20/23 21:58 Dose 100 mg .ROUTE .STK-MED ONE Prednisone Confirm 11/20/23 21:58 Prednisone 20 Mg Tablet Administered 11/20/23 21:59 Dose 20 mg .ROUTE .STK-MED ONE Lab/Rad Data: Laboratory Result Diagrams 11/20/23 19:29 11/20/23 19:29 Laboratory Results 11/20/23 11/20/23 11/20/23 Range/Units 21:12 19:29 19:29 WBC (3.98-10.04) x10^3/uL RBC (3.93-5.22) x10^6/uL Hgb (11.2-15.7) g/dL Hct (34.1-44.9) % MCV (79.4-94.8) fL MCH (25.6-32.2) pg MCHC (32.2-35.5) g/dL RDW (11.7-14.4) % Plt Count (182-369) x10^3/uL MPV (9.4-12.3) fL Gran % (34.0-71.1) % Immature Gran % (Auto) (0.001-0.429) % Nucleat RBC Rel Count (0.00-0.2) % Eos # (Auto) (0.04-0.36) x10^3/uL Immature Gran # (Auto) (0.001-0.031) x10^3u/L Absolute Lymphs (auto) (1.18-3.74) x10^3/uL Absolute Monos (auto) (0.24-0.86) x10^3/uL Absolute Nucleated RBC (0.00-0.012) x10^3u/L Lymphocytes % (19.3-51.7) % Monocytes % (4.7-12.5) % Eosinophils % (0.7-5.8) % Basophils % (0.1-1.2) % Absolute Granulocytes (1.56-6.13) x10^3/uL Basophils # (0.01-0.08) x10^3/uL Sodium (135-145) mmol/L Potassium (3.5-5.1) mmol/L Chloride (98-107) mmol/L Carbon Dioxide (22-30) mmol/L Anion Gap (5-15) MEQ/L BUN (7-17) mg/dL Creatinine (0.52-1.04) mg/dL Estimated GFR ML/MIN Glucose (74-106) mg/dL Calcium (8.4-10.2) mg/dL Magnesium (1.6-2.3) mg/dL Total Bilirubin (0.2-1.3) mg/dL AST (14-36) U/L ALT (0-35) U/L Alkaline Phosphatase (38-126) U/L Troponin I < 0.012 (0.000-0.033) ng/mL Serum Total Protein (6.3-8.2) g/dL Albumin (3.5-5.0) g/dL Urine Color Yellow (Yellow) Urine Appearance Turbid A (Clear) Urine pH 5.0 (4.6-8.0) Ur Specific [place] 1.020 (1.005-1.030) Urine Protein 30 (Negative) Urine Glucose (UA) Negative (Negative) mg/dL Urine Ketones Negative (Negative) Urine Blood Moderate A (Negative) Urine Nitrite Negative (Negative) Urine Bilirubin Negative (Negative) Urine Urobilinogen 0.2 (0.2) mg/dL Ur Leukocyte Esterase Large A (Negative) U Hyaline Cast (Auto) 3-5 A (0-2) /LPF Urine Microscopic RBC 11-20 A (0-5) /HPF Urine Microscopic WBC >100 A (0-5) /HPF Ur Epithelial Cells Many A (None Seen) /HPF Urine Bacteria Many A (None Seen) /HPF Urine Culture Reflexed YES (NO) Influenza Type A Ag NEGATIVE (NEGATIVE) Influenza Type B Ag NEGATIVE (NEGATIVE) RSV (PCR) NEGATIVE (NEGATIVE) SARS-CoV-2 (PCR) POSITIVE A (NEGATIVE) Group A Strep Antibody (NEGATIVE) 11/20/23 11/20/23 11/20/23 Range/Units 19:29 19:29 19:29 WBC (3.98-10.04) x10^3/uL RBC (3.93-5.22) x10^6/uL Hgb (11.2-15.7) g/dL Hct (34.1-44.9) % MCV (79.4-94.8) fL MCH (25.6-32.2) pg MCHC (32.2-35.5) g/dL RDW (11.7-14.4) % Plt Count (182-369) x10^3/uL MPV (9.4-12.3) fL Gran % (34.0-71.1) % Immature Gran % (Auto) (0.001-0.429) % Nucleat RBC Rel Count (0.00-0.2) % Eos # (Auto) (0.04-0.36) x10^3/uL Immature Gran # (Auto) (0.001-0.031) x10^3u/L Absolute Lymphs (auto) (1.18-3.74) x10^3/uL Absolute Monos (auto) (0.24-0.86) x10^3/uL Absolute Nucleated RBC (0.00-0.012) x10^3u/L Lymphocytes % (19.3-51.7) % Monocytes % (4.7-12.5) % Eosinophils % (0.7-5.8) % Basophils % (0.1-1.2) % Absolute Granulocytes (1.56-6.13) x10^3/uL Basophils # (0.01-0.08) x10^3/uL Sodium 136 (135-145) mmol/L Potassium 4.2 (3.5-5.1) mmol/L Chloride 100 (98-107) mmol/L Carbon Dioxide 30 (22-30) mmol/L Anion Gap 9.3 (5-15) MEQ/L BUN 22 H (7-17) mg/dL Creatinine 0.92 (0.52-1.04) mg/dL Estimated GFR 64.5 ML/MIN Glucose 144 H (74-106) mg/dL Calcium 8.6 (8.4-10.2) mg/dL Magnesium 1.9 (1.6-2.3) mg/dL Total Bilirubin 0.20 (0.2-1.3) mg/dL AST 46 H (14-36) U/L ALT 29 (0-35) U/L Alkaline Phosphatase 66 (38-126) U/L Troponin I (0.000-0.033) ng/mL Serum Total Protein 6.2 L (6.3-8.2) g/dL Albumin 3.4 L (3.5-5.0) g/dL Urine Color (Yellow) Urine Appearance (Clear) Urine pH (4.6-8.0) Ur Specific [place] (1.005-1.030) Urine Protein (Negative) Urine Glucose (UA) (Negative) mg/dL Urine Ketones (Negative) Urine Blood (Negative) Urine Nitrite (Negative) Urine Bilirubin (Negative) Urine Urobilinogen (0.2) mg/dL Ur Leukocyte Esterase (Negative) U Hyaline Cast (Auto) (0-2) /LPF Urine Microscopic RBC (0-5) /HPF Urine Microscopic WBC (0-5) /HPF Ur Epithelial Cells (None Seen) /HPF Urine Bacteria (None Seen) /HPF Urine Culture Reflexed (NO) Influenza Type A Ag (NEGATIVE) Influenza Type B Ag (NEGATIVE) RSV (PCR) (NEGATIVE) SARS-CoV-2 (PCR) (NEGATIVE) Group A Strep Antibody NOT DETECTED (NEGATIVE) 11/20/23 Range/Units 19:29 WBC 5.5 (3.98-10.04) x10^3/uL RBC 2.81 L (3.93-5.22) x10^6/uL Hgb 9.1 L (11.2-15.7) g/dL Hct 29.6 L (34.1-44.9) % MCV 105.3 H (79.4-94.8) fL MCH 32.4 H (25.6-32.2) pg MCHC 30.7 L (32.2-35.5) g/dL RDW 14.2 (11.7-14.4) % Plt Count 168 L (182-369) x10^3/uL MPV 9.6 (9.4-12.3) fL Gran % 67.6 (34.0-71.1) % Immature Gran % (Auto) 0.4 (0.001-0.429) % Nucleat RBC Rel Count 0.0 (0.00-0.2) % Eos # (Auto) 0.20 (0.04-0.36) x10^3/uL Immature Gran # (Auto) 0.02 (0.001-0.031) x10^3u/L Absolute Lymphs (auto) 0.90 L (1.18-3.74) x10^3/uL Absolute Monos (auto) 0.62 (0.24-0.86) x10^3/uL Absolute Nucleated RBC 0.00 (0.00-0.012) x10^3u/L Lymphocytes % 16.5 L (19.3-51.7) % Monocytes % 11.4 (4.7-12.5) % Eosinophils % 3.7 (0.7-5.8) % Basophils % 0.4 (0.1-1.2) % Absolute Granulocytes 3.69 (1.56-6.13) x10^3/uL Basophils # 0.02 (0.01-0.08) x10^3/uL Sodium (135-145) mmol/L Potassium (3.5-5.1) mmol/L Chloride (98-107) mmol/L Carbon Dioxide (22-30) mmol/L Anion Gap (5-15) MEQ/L BUN (7-17) mg/dL Creatinine (0.52-1.04) mg/dL Estimated GFR ML/MIN Glucose (74-106) mg/dL Calcium (8.4-10.2) mg/dL Magnesium (1.6-2.3) mg/dL Total Bilirubin (0.2-1.3) mg/dL AST (14-36) U/L ALT (0-35) U/L Alkaline Phosphatase (38-126) U/L Troponin I (0.000-0.033) ng/mL Serum Total Protein (6.3-8.2) g/dL Albumin (3.5-5.0) g/dL Urine Color (Yellow) Urine Appearance (Clear) Urine pH (4.6-8.0) Ur Specific [place] (1.005-1.030) Urine Protein (Negative) Urine Glucose (UA) (Negative) mg/dL Urine Ketones (Negative) Urine Blood (Negative) Urine Nitrite (Negative) Urine Bilirubin (Negative) Urine Urobilinogen (0.2) mg/dL Ur Leukocyte Esterase (Negative) U Hyaline Cast (Auto) (0-2) /LPF Urine Microscopic RBC (0-5) /HPF Urine Microscopic WBC (0-5) /HPF Ur Epithelial Cells (None Seen) /HPF Urine Bacteria (None Seen) /HPF Urine Culture Reflexed (NO) Influenza Type A Ag (NEGATIVE) Influenza Type B Ag (NEGATIVE) RSV (PCR) (NEGATIVE) SARS-CoV-2 (PCR) (NEGATIVE) Group A Strep Antibody (NEGATIVE) - Progress Progress: improved Air Movement: fair Blood Culture(s) Obtained: No Antibiotics given: Yes Counseled pt/family regarding: lab results, diagnosis, need for follow-up, rad results <QUYNH LAUREN - Last Filed: 11/20/23 22:09> - Progress Progress Note: 11/20/23 21:06 I assumed care for pt from Dr Castellanos at 19:00 covid +, negative flu/rsv cxr not suggestive of acute bacterial process pt has been AxO x 3 throughout ED stay pt reports breathing has improved since duoneb, O2 saturation >95% on baseline supplemental O2 labs largely unremarkable 11/20/23 22:03 UA suggestive of UTI - will start macrobid pt improved w/ duoneb treatment, still mild rhonchi on exam, pt and daughters report that pt has nebulizer treatments at home that she does not regularly use vitals have been stable during ED stay, O2 saturation around 100% on baseline 4L O2 pt has been symptomatic for > 72h, out of window for paxlovid at this time plan for dc home w/ prescription for macrobid and prednisone instructed to call for follow up w/ PCP Cynthia Newell first thing tomorrow morning recommend using nebulizer treatments q6-8h throughout the day scheduled while cough is acutely worsened recommend hydrating well with clear liquids and electrolyte containing fluids return to ED if: develop acute confusion, oxygen saturation starts to decrease below 88% despite supplemental oxygen, develop chest pain, develop fevers that do not resolve with tylenol (QUYNH LAUREN) Medical Desision Making - Diagnostic Testing Diagnostic test were ordered, analyzed, and reviewed by me: Yes Radiological Interpretation: Reviewed by me, Teleradiologist Report <QUYNH LAUREN - Last Filed: 11/20/23 22:09> <RAHUL CASTELLANOS - Last Filed: 11/20/23 19:04> - Departure Departure Disposition: Home Critical Care Time: No <QUYNH LAUREN - Last Filed: 11/20/23 22:09> - Departure Clinical Impression: COVID UTI (urinary tract infection) Qualifiers: Urinary tract infection type: acute cystitis Hematuria presence: without hematuria Qualified Code(s): N30.00 - Acute cystitis without hematuria Condition: Stable Referrals: MIGUEL NEWELL NP [Primary Care Provider] - Follow up/PCP as directed Additional Instructions: plan for dc home w/ prescription for macrobid and prednisone instructed to call for follow up w/ PCP Cynthia Newell first thing tomorrow morning recommend using nebulizer treatments q6-8h throughout the day scheduled while cough is acutely worsened recommend hydrating well with clear liquids and electrolyte containing fluids return to ED if: develop acute confusion, oxygen saturation starts to decrease below 88% despite supplemental oxygen, develop chest pain, develop fevers that do not resolve with tylenol Prescriptions: Prednisone 20 mg [Deltasone 20 mg] 20 mg PO DAILY #5 tablet Nitrofurantoin Macro 100 mg [Macrobid 100MG Capsule] 100 mg PO BID 7 Days #14 cap
[2023-11-20] MEDS ORDERED: PROVENTIL 2.5 MG/3 ML NEB IH ONE (19:18)
[2023-11-20] MEDS: PROVENTIL 2.5 MG/3 ML NEB IH ONE (19:31)
[2023-11-20 19:33] LABS: Absolute Neutrophil Ct (ANC) 3.69 x10^3/uL (1.56-6.13); BASOPHIL % 0.4 % (0.1-1.2); Basophil (Absolute #) 0.02 x10^3/uL (0.01-0.08); Eosinophil % 3.7 % (0.7-5.8); Hematocrit 29.6 % (34.1-44.9); Hemoglobin 9.1 g/dL (11.2-15.7); IMMATURE GRAN # 0.02 x10^3u/L (0.001-0.031); IMMATURE GRAN % 0.4 % (0.001-0.429); Lymphocytes % 16.5 % (19.3-51.7); Mean Cell Volume 105.3 fL (79.4-94.8); Mean Corpuscular Hemoglobin 32.4 pg (25.6-32.2); Mean Corpuscular Hgb Concent. 30.7 g/dL (32.2-35.5); Mean Platelet Volume 9.6 fL (9.4-12.3); Monocyte (Absolute #) 0.62 x10^3/uL (0.24-0.86); Monocytes % 11.4 % (4.7-12.5); Neutrophil % 67.6 % (34.0-71.1); Platelet Count 168 x10^3/uL (182-369); Red Blood Count 2.81 x10^6/uL (3.93-5.22); Red Cell Distribution Width 14.2 % (11.7-14.4); White Blood Count 5.5 x10^3/uL (3.98-10.04)
[2023-11-20] MEDS ORDERED: Sodium Chloride 0.9% 1000 ML 1,000 ML ONE (19:34)
[2023-11-20] MEDS: Sodium Chloride 0.9% 1000 ML 1,000 ML IV STA (19:35)
[2023-11-20 19:47] LABS: ALBUMIN 3.4 g/dL (3.5-5.0); ANION GAP 9.3 MEQ/L (5-15); BILIRUBIN,TOTAL 0.2 mg/dL (0.2-1.3); Calcium 8.6 mg/dL (8.4-10.2); Creatinine 1 0.92 mg/dL (0.52-1.04); EST GLOMERULAR FILTRATION RATE 64.5 ML/MIN; Potassium 4.2 mmol/L (3.5-5.1); Total Protein 6.2 g/dL (6.3-8.2)
[2023-11-20 20:15] LABS: INFLUENZA A NEGATIVE (NEGATIVE); INFLUENZA B NEGATIVE (NEGATIVE); RESPIRATORY SYNCTIAL VIRUS NEGATIVE (NEGATIVE)
[2023-11-20 20:23] LABS: SARS-CoV-2 Xpert Express POSITIVE (NEGATIVE)
[2023-11-20 21:36] LABS: ADD URINE CULTURE? YES (NO); Appearance Turbid (Clear); Bacteria Many /HPF (None Seen); Bilirubin Negative (Negative); Blood Moderate (Negative); Epithelial Cells Many /HPF (None Seen); Glucose, Urine Negative (Negative); Ketones Negative (Negative); Leukocyte Esterase Large (Negative); Nitrite Negative (Negative); Protein,Urine Dip 30 (Negative); Urobilinogen 0.2 mg/dL (0.2); WBC >100 /HPF (0-5)
[2023-11-20] MEDS: Macrobid 100MG Capsule PO ONE ×2 (21:46→22:08)
[2023-11-20] MEDS ORDERED: Macrobid 100MG Capsule ONE ×2 (21:46→21:57)
[2023-11-20] MEDS ORDERED: DELTASONE 20 MG ONE (21:58)
[2023-11-20] MEDS: DELTASONE 20 MG PO ONE (22:08)
[2023-11-20 22:27] VITALS: BP 128/59; PULSE 78; RESP 18; O2SAT 99
--- NOTE | 2023-11-21 08:46 | XRAY ---
Indication: Fever and cough. Comparison: November 03, 2022. PA/lateral chest again demonstrate COPD, CIPD, and left costophrenic angle calcified granuloma. No focal infiltrate, consolidation, or large effusion. Heart not enlarged with stable right Port-A-Cath. New small hiatal hernia. Bony thorax intact again with osteopenia and degenerative changes. Impression: Nonacute chest with chronic features.
== END 2023-11-20 22:22 | disposition home or self-care (01) ==
LOC: ED 18:21
DX: U07.1 COVID-19 (principal); N30.00 Acute cystitis without hematuria; R53.83 Other fatigue; R05.1 Acute cough; R50.9 Fever, unspecified; Z79.02 Long term (current) use of antithrombotics/antiplatelets; Z79.891 Long term (current) use of opiate analgesic; Z79.52 Long term (current) use of systemic steroids; Z79.899 Other long term (current) drug therapy; Z99.81 Dependence on supplemental oxygen
CPT/HCPCS: 0241U; 36000; 36415; 71046; 80053; 81001; 83735; 84484; 85025; 87086; 87651; 93005; 94640; 99284; J1642; J7609; A9270-GY

== ENCOUNTER 2023-11-23 17:36 | Emergency (ER) | payer MEDICARE ==
--- NOTE | 2023-11-23 17:44 | ERPHSYRPT ---
- History of Present Illness Source: patient Exam Limitations: no limitations Timing/Duration: day(s) (Worsening symptoms over the last 3 days), worse Activities at Onset: none Severity of Dyspnea-Max: moderate Severity of Dyspnea-Current: moderate Possible Cause: frequent episodes Modifying Factors: Improves With: activity (Since) Associated Symptoms: cough, weakness, No chest pain/discomfort Hx Tetanus, Diphtheria Vaccination/Date Given: No Hx Influenza Vaccination/Date Given: No Hx Pneumococcal Vaccination/Date Given: Yes - History of Present Illness Time Seen by Provider: 11/23/23 17:44 Physician History: This is a 78-year-old cachectic appearing white female patient of nurse practitioner Reece who has recently been diagnosed on 11/20/2023 for positive COVID 19 infection. Patient has oxygen dependent COPD and has been struggling to breathe since her discharge from the emergency department on 11/20/2023. Paramedics were contacted. Patient was found in tripod position struggling to breathe at home. Patient received a DuoNeb treatment by the paramedics. When she arrived to the emergency department she stated "I cannot breathe". She denies chest pain. She has no abdominal pain. She has no vomiting or diarrhea symptoms. (MARINA RANDHAWA) Allergies/Adverse Reactions: spironolactone Allergy (Intermediate, Verified 11/20/23 18:35) Rash Penicillins Allergy (Mild, Verified 11/20/23 18:35) Hives Home Medications: ALPRAZolam [Xanax 0.25 mg] 0.25 - 0.5 mg PO DAILY 08/30/13 [History] Aspirin 81 gm Chew [Baby Aspirin 81 mg Chew] 81 mg PO DAILY 08/30/13 [History] Multivitamin [Multivitamins] 1 tab PO DAILY 08/30/13 [History] Albuterol Common Canister [Ventolin Common Canister] 2 puff IH Q4H PRN PRN 09/16/22 [History] Atorvastatin Calcium 10 mg PO DAILY 09/16/22 [History] Biotin 1 mg PO DAILY 09/16/22 [History] Clopidogrel Bisulfate [Clopidogrel] 75 mg PO DAILY 09/16/22 [History] Duloxetine HCl 60 mg PO DAILY 09/16/22 [History] Levothyroxine Sodium 25 Mcg [Synthroid 25 Mcg] 25 mcg PO DAILY 09/16/22 [History] Midodrine HCl 2.5 mg PO TID 09/16/22 [History] Acetaminophen [Tylenol Arthritis] 1,300 mg PO DAILY 11/20/23 [History] Calcium Carb/Vit D3/Minerals [Calcium 600+D Plus Minerals Tb] 2 tab PO DAILY 11/20/23 [History] Cyanocobalamin (Vitamin B-12) [Vitamin B-12] 1,000 mcg PO DAILY 11/20/23 [History] Morphine Sulfate [Morphine Sulfate ER] 15 mg PO Q12H 11/20/23 [History] Vitamin E 400 Units [Vitamin E 400 UNIT SOFTGEL] 400 unit PO DAILY 11/20/23 [History] Denosumab [Xgeva] 1 misc SQ UD 11/23/23 [History] Nitrofurantoin Monohyd/M-Cryst [Nitrofurantoin [place]-Mcr 100 mg] 100 mg PO BID 11/23/23 [History] Prednisone 20 mg [Deltasone 20 mg] 20 mg PO DAILY 11/23/23 [History] Travel Risk - International Travel Have you traveled outside of the country in past 3 weeks: Yes - Emerging Infectious Disease Are you exhibiting symptoms associated with any current EIDs: No Symptoms: Shortness of Breath - Review of Systems Constitutional: Weakness Eyes: No Symptoms Ears, Nose, & Throat: No Symptoms Respiratory: Dyspnea Cardiac: No Symptoms Abdominal/Gastrointestinal: No Symptoms Genitourinary Symptoms: No Symptoms Musculoskeletal: No Symptoms Skin: No Symptoms Neurological: No Symptoms Psychological: No Symptoms Endocrine: No Symptoms Hematologic/Lymphatic: No Symptoms Immunological/Allergic: No Symptoms All Other Systems: Reviewed and Negative - Past Medical History Pertinent Past Medical History: Yes Neurological History: No Pertinent History ENT History: No Pertinent History Cardiac History: No Pertinent History Respiratory History: Lung Cancer Endocrine Medical History: Hypothyroidism Musculoskeletal History: Osteoarthritis GI Medical History: GERD, Gallbladder Disease, Hemorrhoids History: Renal Disease Psycho-Social History: Anxiety Female Reproductive Disorders: No Pertinent History Other Medical History: PATIENT USES 02 AT HOME, SHE USES 2 L AT ALL TIMES. - Past Surgical History Past Surgical History: Yes Neuro Surgical History: No Pertinent History Cardiac: No Pertinent History Respiratory: No Pertinent History Gastrointestinal: Cholecystectomy Genitourinary: No Pertinent History Musculoskeletal: No Pertinent History Female Surgical History: Section Other Surgical History: aaa with stent repair, carpal tunnel, lung bx - Social History Smoking Status: Former smoker How long have you smoked: 50 years Exposure to second hand smoke: No Drug Use: none Patient Lives Alone: No - Social Determinants of Health Will the patient participate in the screening: Yes Do you worry about a steady place to live?: No In the past 12 months,have you had to go without utilities?: No Transportation Issues: No Has anyone in your support network made you feel unsafe?: No Have you or anyone in your house had to go without enough: No - Physical Exam General Appearance: mild distress (To moderate), alert, anxiety, cachetic Eye Exam: PERRL/EOMI, eyes nml inspection Ears, Nose, Throat Exam: hearing grossly normal, normal ENT inspection, normal pharynx Neck Exam: normal inspection, non-tender, supple, full range of motion Respiratory Exam: respiratory distress, airway intact, diminished breath sounds (Laterally), No chest tenderness Cardiovascular/Chest Exam: normal heart sounds, regular rate/rhythm Abdominal/Gastrointestinal Exam: soft, normal bowel sounds, No tenderness Rectal Exam: not done Extremity Exam: non-tender, normal range of motion, normal inspection Neurologic Exam: alert, oriented x 3, cooperative, routing machine operator II-XII nml as tested, sensation nml Skin Exam: normal color, warm, dry Lymphatic Exam: No adenopathy SpO2 Interpretation: ABG ordered, O2 applied O2 Delivery: BiPap - Nursing Vital Signs Nursing Vital Signs: Initial Vital Signs Temperature 98.9 F 11/23/23 17:38 Pulse Rate 93 H 11/23/23 17:38 Respiratory Rate 28 H 11/23/23 17:38 Blood Pressure 148/91 11/23/23 17:38 O2 Sat by Pulse Oximetry 95 11/23/23 17:38 Pain Scale Pain Intensity 0 - Course Nursing assessment & vital signs reviewed: Yes Ordered Tests: Active Orders 24 hr Category Date Time Status EKG-ER Only STAT Care 11/23/23 17:56 Active IV Insertion STAT Care 11/23/23 17:56 Active Pulse Oximetry (ED) STAT Care 11/23/23 17:57 Active CHEST 1 VIEW (PORTABLE) Stat Exams 11/23/23 17:56 Taken ABG [ARTERIAL BLOOD GASES] Urgent Lab 11/23/23 18:10 Completed BLOOD CULTURE Stat Lab 11/23/23 18:15 Received CBC W DIFF Stat Lab 11/23/23 18:08 Completed CMP Stat Lab 11/23/23 18:08 Completed Lactic Acid Stat Lab 11/23/23 17:56 Completed Lactic Acid Stat Lab 11/23/23 20:15 Completed Lactic Acid Stat Lab 11/23/23 22:13 Completed MAGNESIUM Stat Lab 11/23/23 18:08 Completed NT PRO BNPII Stat Lab 11/23/23 18:08 Completed TROPONIN Q4H Lab 11/23/23 18:08 Completed TROPONIN Q4H Lab 11/23/23 20:45 Completed TROPONIN Stat Lab 11/23/23 22:20 Completed VBG [VENOUS BLOOD GAS] Stat Lab 11/23/23 20:49 Completed VBG [VENOUS BLOOD GAS] Stat Lab 11/23/23 22:10 Completed BiPap/CPAP STAT RT 11/23/23 18:16 Active Medication Summary Generic Name Dose Route Start Last Admin Trade Name Freq PRN Reason Stop Dose Admin Nitroglycerin/Dextrose 250 mls @ 1.5 mls/hr 11/23/23 20:02 11/23/23 23:17 Ntg 0.2mg/Ml In D5w Glass IV 12/23/23 20:01 5 mcg/min .Q24H PRN 1.5 mls/hr CHEST PAIN Titration Protocol 5 MCG/MIN Doxycycline Hyclate 100 mg/ 100 mls @ 100 mls/hr 11/23/23 22:00 11/24/23 00 :17 Dextrose IV 12/23/23 21:59 100 mls/hr Q12HT FOUZIA Administration Discontinued Medications Generic Name Dose Route Start Last Admin Trade Name Freq PRN Reason Stop Dose Admin Alprazolam 0.5 mg 11/24/23 02:27 11/24/23 02:31 Alprazolam 0.5 Mg Tablet PO 11/24/23 02:28 0.5 mg STAT ONE Administration Alprazolam Confirm 11/24/23 02:30 Alprazolam 0.5 Mg Tablet Administered 11/24/23 02:31 Dose 0.5 mg .ROUTE .STK-MED ONE Methylprednisolone Sodium 0 mg 11/23/23 17:57 11/23/23 18:02 Succinate 125 mg/ Sterile IV 11/23/23 17:58 125 mg Water 2 ml STAT ONE Administration Doxycycline Hyclate Confirm 11/24/23 00:15 Doxycycline Hyclate 100 Mg/Vial Injection Administered 11/24/23 00:16 Dose 100 mg IV .STK-MED ONE Furosemide 40 mg 11/23/23 19:56 11/23/23 20:00 Furosemide 40 Mg/4 Ml Vial IV 11/23/23 19:57 40 mg STAT ONE Administration Furosemide Confirm 11/23/23 19:58 Furosemide 40 Mg/4 Ml Vial Administered 11/23/23 19:59 Dose 40 mg .ROUTE .STK-MED ONE Vancomycin HCl 1 gm in 200 mls @ 125 mls/hr 11/23/23 21:18 11/23/23 21:46 Vancomycin 1 Gram/200 Ml Bag IV 11/23/23 22:53 Not Given STAT ONE Vancomycin HCl 1 gm in 200 mls @ 125 mls/hr 11/23/23 21:22 11/23/23 23:23 Vancomycin 1 Gram/200 Ml Bag IV 11/23/23 22:57 Infused STAT ONE Infusion Vancomycin HCl Confirm 11/23/23 21:45 Vancomycin 1 Gram/200 Ml Bag Administered 11/23/23 21:46 Dose 1 gm in 200 mls @ ud IV .STK-MED ONE Dextrose Confirm 11/24/23 00:15 D5w 100ml Mini Bag 100 Ml Administered 11/24/23 00:16 Dose 100 mls @ ud IV .STK-MED ONE Methylprednisolone Sodium Succinate Confirm 11/23/23 18:01 Methylprednis Sod Succ 125 Mg/2 Ml Vial Administered 11/23/23 18:02 Dose 125 mg .ROUTE .STK-MED ONE Ondansetron HCl 4 mg 11/23/23 22:32 11/23/23 22:34 Ondansetron Hcl 4 Mg/2 Ml Vial IV 11/23/23 22:33 4 mg STAT ONE Administration Ondansetron HCl Confirm 11/23/23 22:31 Ondansetron Hcl 4 Mg/2 Ml Vial Administered 11/23/23 22:32 Dose 4 mg .ROUTE .STK-MED ONE Sterile Water Confirm 11/23/23 18:01 Water For Injection,Sterile 10 Ml Vial Administered 11/23/23 18:02 Dose 10 ml IJ .STK-MED ONE Lab/Rad Data: Laboratory Result Diagrams 11/23/23 18:08 11/23/23 18:08 Laboratory Results 11/23/23 11/23/23 11/23/23 Range/Units 22:20 22:13 22:10 WBC (3.98-10.04) x10^3/uL RBC (3.93-5.22) x10^6/uL Hgb (11.2-15.7) g/dL Hct (34.1-44.9) % MCV (79.4-94.8) fL MCH (25.6-32.2) pg MCHC (32.2-35.5) g/dL RDW (11.7-14.4) % Plt Count (182-369) x10^3/uL MPV (9.4-12.3) fL Gran % (34.0-71.1) % Immature Gran % (Auto) (0.001-0.429) % Nucleat RBC Rel Count (0.00-0.2) % Eos # (Auto) (0.04-0.36) x10^3/uL Immature Gran # (Auto) (0.001-0.031) x10^3u/L Absolute Lymphs (auto) (1.18-3.74) x10^3/uL Absolute Monos (auto) (0.24-0.86) x10^3/uL Absolute Nucleated RBC (0.00-0.012) x10^3u/L Lymphocytes % (19.3-51.7) % Monocytes % (4.7-12.5) % Eosinophils % (0.7-5.8) % Basophils % (0.1-1.2) % Absolute Granulocytes (1.56-6.13) x10^3/uL Basophils # (0.01-0.08) x10^3/uL Puncture Site pCO2 (35-45) mmHg pO2 (75-100) mmHg pO2/FiO2 Ratio 50.0 % Base Excess (-2.0-2.0) O2 Saturation (94-100) g/dF ABG pH (7.35-7.45) ABG HCO3 (22-28) ABG O2 Sat (Measured) (95-100) % Clarence Test VBG pH 7.25 L (7.32-7.42) VBG pCO2 at Pat Temp 64 H* (42-55) mm/Hg VBG pO2 at Pat Temp 38 (25-40) mm/Hg VBG HCO3 28.1 H (22-28) meq/L VBG O2 Sat (Cristiana) 61.5 L (95-100) VBG Base Excess -0.1 (-2.0-2.0) VBG Hemoglobin 10.6 VBG Carboxyhemoglobin 4.0 (0.0-6.9) % T HGB A-a Gradient a/A Ratio Hemoglobin Carboxyhemoglobin (0.0-6.9) % THgb Methemoglobin (1.4-1.5) % POC Potassium 5.4 H (3.5-5.1) Temperature C POC O2 Flow Rate % Sodium (135-145) mmol/L Potassium (3.5-5.1) mmol/L Chloride (98-107) mmol/L Carbon Dioxide (22-30) mmol/L Anion Gap (5-15) MEQ/L BUN (7-17) mg/dL Creatinine (0.52-1.04) mg/dL Estimated GFR ML/MIN Glucose (74-106) mg/dL Lactic Acid 3.5 H (0.4-2.0) Calcium (8.4-10.2) mg/dL Magnesium (1.6-2.3) mg/dL Total Bilirubin (0.2-1.3) mg/dL AST (14-36) U/L ALT (0-35) U/L Alkaline Phosphatase (38-126) U/L Troponin I 0.618 H* (0.000-0.033) ng/mL NT-Pro-B Natriuret Pep (<300) pg/mL Serum Total Protein (6.3-8.2) g/dL Albumin (3.5-5.0) g/dL Influenza Type A Ag (NEGATIVE) Influenza Type B Ag (NEGATIVE) RSV (PCR) (NEGATIVE) SARS-CoV-2 (PCR) (NEGATIVE) Slides for Path Review 11/23/23 11/23/23 11/23/23 Range/Units 20:49 20:45 20:15 WBC (3.98-10.04) x10^3/uL RBC (3.93-5.22) x10^6/uL Hgb (11.2-15.7) g/dL Hct (34.1-44.9) % MCV (79.4-94.8) fL MCH (25.6-32.2) pg MCHC (32.2-35.5) g/dL RDW (11.7-14.4) % Plt Count (182-369) x10^3/uL MPV (9.4-12.3) fL Gran % (34.0-71.1) % Immature Gran % (Auto) (0.001-0.429) % Nucleat RBC Rel Count (0.00-0.2) % Eos # (Auto) (0.04-0.36) x10^3/uL Immature Gran # (Auto) (0.001-0.031) x10^3u/L Absolute Lymphs (auto) (1.18-3.74) x10^3/uL Absolute Monos (auto) (0.24-0.86) x10^3/uL Absolute Nucleated RBC (0.00-0.012) x10^3u/L Lymphocytes % (19.3-51.7) % Monocytes % (4.7-12.5) % Eosinophils % (0.7-5.8) % Basophils % (0.1-1.2) % Absolute Granulocytes (1.56-6.13) x10^3/uL Basophils # (0.01-0.08) x10^3/uL Puncture Site pCO2 (35-45) mmHg pO2 (75-100) mmHg pO2/FiO2 Ratio 50.0 % Base Excess (-2.0-2.0) O2 Saturation (94-100) g/dF ABG pH (7.35-7.45) ABG HCO3 (22-28) ABG O2 Sat (Measured) (95-100) % Clarence Test VBG pH 7.20 L* (7.32-7.42) VBG pCO2 at Pat Temp 74 H* (42-55) mm/Hg VBG pO2 at Pat Temp 22 L (25-40) mm/Hg VBG HCO3 28.9 H (22-28) meq/L VBG O2 Sat (Cristiana) 25.6 L (95-100) VBG Base Excess -0.5 (-2.0-2.0) VBG Hemoglobin 10.9 VBG Carboxyhemoglobin 2.6 (0.0-6.9) % T HGB A-a Gradient a/A Ratio Hemoglobin Carboxyhemoglobin (0.0-6.9) % THgb Methemoglobin (1.4-1.5) % POC Potassium 5.1 (3.5-5.1) Temperature C POC O2 Flow Rate % Sodium (135-145) mmol/L Potassium (3.5-5.1) mmol/L Chloride (98-107) mmol/L Carbon Dioxide (22-30) mmol/L Anion Gap (5-15) MEQ/L BUN (7-17) mg/dL Creatinine (0.52-1.04) mg/dL Estimated GFR ML/MIN Glucose (74-106) mg/dL Lactic Acid 5.2 H (0.4-2.0) Calcium (8.4-10.2) mg/dL Magnesium (1.6-2.3) mg/dL Total Bilirubin (0.2-1.3) mg/dL AST (14-36) U/L ALT (0-35) U/L Alkaline Phosphatase (38-126) U/L Troponin I 0.475 H* (0.000-0.033) ng/mL NT-Pro-B Natriuret Pep (<300) pg/mL Serum Total Protein (6.3-8.2) g/dL Albumin (3.5-5.0) g/dL Influenza Type A Ag (NEGATIVE) Influenza Type B Ag (NEGATIVE) RSV (PCR) (NEGATIVE) SARS-CoV-2 (PCR) (NEGATIVE) Slides for Path Review 11/23/23 11/23/23 11/23/23 Range/Units 18:18 18:10 18:08 WBC (3.98-10.04) x10^3/uL RBC (3.93-5.22) x10^6/uL Hgb (11.2-15.7) g/dL Hct (34.1-44.9) % MCV (79.4-94.8) fL MCH (25.6-32.2) pg MCHC (32.2-35.5) g/dL RDW (11.7-14.4) % Plt Count (182-369) x10^3/uL MPV (9.4-12.3) fL Gran % (34.0-71.1) % Immature Gran % (Auto) (0.001-0.429) % Nucleat RBC Rel Count (0.00-0.2) % Eos # (Auto) (0.04-0.36) x10^3/uL Immature Gran # (Auto) (0.001-0.031) x10^3u/L Absolute Lymphs (auto) (1.18-3.74) x10^3/uL Absolute Monos (auto) (0.24-0.86) x10^3/uL Absolute Nucleated RBC (0.00-0.012) x10^3u/L Lymphocytes % (19.3-51.7) % Monocytes % (4.7-12.5) % Eosinophils % (0.7-5.8) % Basophils % (0.1-1.2) % Absolute Granulocytes (1.56-6.13) x10^3/uL Basophils # (0.01-0.08) x10^3/uL Puncture Site RIGHT BRACHIAL pCO2 55 H (35-45) mmHg pO2 93 (75-100) mmHg pO2/FiO2 Ratio % Base Excess -2.8 L (-2.0-2.0) O2 Saturation 96.5 (94-100) g/dF ABG pH 7.26 L (7.35-7.45) ABG HCO3 24.7 (22-28) ABG O2 Sat (Measured) 96.5 (95-100) % Clarence Test NOT APPLICABLE VBG pH (7.32-7.42) VBG pCO2 at Pat Temp (42-55) mm/Hg VBG pO2 at Pat Temp (25-40) mm/Hg VBG HCO3 (22-28) meq/L VBG O2 Sat (Cristiana) (95-100) VBG Base Excess (-2.0-2.0) VBG Hemoglobin VBG Carboxyhemoglobin (0.0-6.9) % T HGB A-a Gradient 551 a/A Ratio 0.14 Hemoglobin 10.8 Carboxyhemoglobin 0.0 (0.0-6.9) % THgb Methemoglobin 0.0 L (1.4-1.5) % POC Potassium (3.5-5.1) Temperature 37.0 C POC O2 Flow Rate 100 % Sodium (135-145) mmol/L Potassium 5.2 H (3.5-5.1) mmol/L Chloride (98-107) mmol/L Carbon Dioxide (22-30) mmol/L Anion Gap (5-15) MEQ/L BUN (7-17) mg/dL Creatinine (0.52-1.04) mg/dL Estimated GFR ML/MIN Glucose (74-106) mg/dL Lactic Acid (0.4-2.0) Calcium (8.4-10.2) mg/dL Magnesium (1.6-2.3) mg/dL Total Bilirubin (0.2-1.3) mg/dL AST (14-36) U/L ALT (0-35) U/L Alkaline Phosphatase (38-126) U/L Troponin I (0.000-0.033) ng/mL NT-Pro-B Natriuret Pep 81911 (<300) pg/mL Serum Total Protein (6.3-8.2) g/dL Albumin (3.5-5.0) g/dL Influenza Type A Ag NEGATIVE (NEGATIVE) Influenza Type B Ag NEGATIVE (NEGATIVE) RSV (PCR) NEGATIVE (NEGATIVE) SARS-CoV-2 (PCR) POSITIVE A (NEGATIVE) Slides for Path Review 11/23/23 11/23/23 11/23/23 Range/Units 18:08 18:08 18:08 WBC 17.6 H (3.98-10.04) x10^3/uL RBC 3.19 L (3.93-5.22) x10^6/uL Hgb 10.3 L (11.2-15.7) g/dL Hct 33.7 L (34.1-44.9) % MCV 105.6 H (79.4-94.8) fL MCH 32.3 H (25.6-32.2) pg MCHC 30.6 L (32.2-35.5) g/dL RDW 14.2 (11.7-14.4) % Plt Count 252 (182-369) x10^3/uL MPV 9.9 (9.4-12.3) fL Gran % 80.1 H (34.0-71.1) % Immature Gran % (Auto) 0.8 H (0.001-0.429) % Nucleat RBC Rel Count 0.0 (0.00-0.2) % Eos # (Auto) 0.01 L (0.04-0.36) x10^3/uL Immature Gran # (Auto) 0.14 H (0.001-0.031) x10^3u/L Absolute Lymphs (auto) 1.78 (1.18-3.74) x10^3/uL Absolute Monos (auto) 1.53 H (0.24-0.86) x10^3/uL Absolute Nucleated RBC 0.00 (0.00-0.012) x10^3u/L Lymphocytes % 10.1 L (19.3-51.7) % Monocytes % 8.7 (4.7-12.5) % Eosinophils % 0.1 L (0.7-5.8) % Basophils % 0.2 (0.1-1.2) % Absolute Granulocytes 14.12 H (1.56-6.13) x10^3/uL Basophils # 0.04 (0.01-0.08) x10^3/uL Puncture Site pCO2 (35-45) mmHg pO2 (75-100) mmHg pO2/FiO2 Ratio % Base Excess (-2.0-2.0) O2 Saturation (94-100) g/dF ABG pH (7.35-7.45) ABG HCO3 (22-28) ABG O2 Sat (Measured) (95-100) % Clarence Test VBG pH (7.32-7.42) VBG pCO2 at Pat Temp (42-55) mm/Hg VBG pO2 at Pat Temp (25-40) mm/Hg VBG HCO3 (22-28) meq/L VBG O2 Sat (Cristiana) (95-100) VBG Base Excess (-2.0-2.0) VBG Hemoglobin VBG Carboxyhemoglobin (0.0-6.9) % T HGB A-a Gradient a/A Ratio Hemoglobin Carboxyhemoglobin (0.0-6.9) % THgb Methemoglobin (1.4-1.5) % POC Potassium (3.5-5.1) Temperature C POC O2 Flow Rate % Sodium 137 (135-145) mmol/L Potassium 4.9 (3.5-5.1) mmol/L Chloride 96 L (98-107) mmol/L Carbon Dioxide 29 (22-30) mmol/L Anion Gap 17.6 H (5-15) MEQ/L BUN 21 H (7-17) mg/dL Creatinine 1.00 (0.52-1.04) mg/dL Estimated GFR 58.4 ML/MIN Glucose 239 H (74-106) mg/dL Lactic Acid (0.4-2.0) Calcium 9.9 (8.4-10.2) mg/dL Magnesium 1.9 (1.6-2.3) mg/dL Total Bilirubin 0.60 (0.2-1.3) mg/dL AST 124 H (14-36) U/L ALT 88 H (0-35) U/L Alkaline Phosphatase 109 (38-126) U/L Troponin I 0.453 H* (0.000-0.033) ng/mL NT-Pro-B Natriuret Pep (<300) pg/mL Serum Total Protein 6.8 (6.3-8.2) g/dL Albumin 4.1 (3.5-5.0) g/dL Influenza Type A Ag (NEGATIVE) Influenza Type B Ag (NEGATIVE) RSV (PCR) (NEGATIVE) SARS-CoV-2 (PCR) (NEGATIVE) Slides for Path Review YES 11/23/23 Range/Units 17:56 WBC (3.98-10.04) x10^3/uL RBC (3.93-5.22) x10^6/uL Hgb (11.2-15.7) g/dL Hct (34.1-44.9) % MCV (79.4-94.8) fL MCH (25.6-32.2) pg MCHC (32.2-35.5) g/dL RDW (11.7-14.4) % Plt Count (182-369) x10^3/uL MPV (9.4-12.3) fL Gran % (34.0-71.1) % Immature Gran % (Auto) (0.001-0.429) % Nucleat RBC Rel Count (0.00-0.2) % Eos # (Auto) (0.04-0.36) x10^3/uL Immature Gran # (Auto) (0.001-0.031) x10^3u/L Absolute Lymphs (auto) (1.18-3.74) x10^3/uL Absolute Monos (auto) (0.24-0.86) x10^3/uL Absolute Nucleated RBC (0.00-0.012) x10^3u/L Lymphocytes % (19.3-51.7) % Monocytes % (4.7-12.5) % Eosinophils % (0.7-5.8) % Basophils % (0.1-1.2) % Absolute Granulocytes (1.56-6.13) x10^3/uL Basophils # (0.01-0.08) x10^3/uL Puncture Site pCO2 (35-45) mmHg pO2 (75-100) mmHg pO2/FiO2 Ratio % Base Excess (-2.0-2.0) O2 Saturation (94-100) g/dF ABG pH (7.35-7.45) ABG HCO3 (22-28) ABG O2 Sat (Measured) (95-100) % Clarence Test VBG pH (7.32-7.42) VBG pCO2 at Pat Temp (42-55) mm/Hg VBG pO2 at Pat Temp (25-40) mm/Hg VBG HCO3 (22-28) meq/L VBG O2 Sat (Cristiana) (95-100) VBG Base Excess (-2.0-2.0) VBG Hemoglobin VBG Carboxyhemoglobin (0.0-6.9) % T HGB A-a Gradient a/A Ratio Hemoglobin Carboxyhemoglobin (0.0-6.9) % THgb Methemoglobin (1.4-1.5) % POC Potassium (3.5-5.1) Temperature C POC O2 Flow Rate % Sodium (135-145) mmol/L Potassium (3.5-5.1) mmol/L Chloride (98-107) mmol/L Carbon Dioxide (22-30) mmol/L Anion Gap (5-15) MEQ/L BUN (7-17) mg/dL Creatinine (0.52-1.04) mg/dL Estimated GFR ML/MIN Glucose (74-106) mg/dL Lactic Acid 6.0 H (0.4-2.0) Calcium (8.4-10.2) mg/dL Magnesium (1.6-2.3) mg/dL Total Bilirubin (0.2-1.3) mg/dL AST (14-36) U/L ALT (0-35) U/L Alkaline Phosphatase (38-126) U/L Troponin I (0.000-0.033) ng/mL NT-Pro-B Natriuret Pep (<300) pg/mL Serum Total Protein (6.3-8.2) g/dL Albumin (3.5-5.0) g/dL Influenza Type A Ag (NEGATIVE) Influenza Type B Ag (NEGATIVE) RSV (PCR) (NEGATIVE) SARS-CoV-2 (PCR) (NEGATIVE) Slides for Path Review - Progress Progress: improved, re-examined Air Movement: poor Blood Culture(s) Obtained: Yes - Progress Progress Note: 11/23/23 19:27 My medical decision making and the assignment of moderate to high complexity of this patient's medical issue today is based on review of the patient's past medical history, review the patient's medication list, review patient drug allergy list, history present illness and physical findings on examination. The workup today includes respiratory therapy consultation intervention with BiPAP placement, ABG, CBC, CMP, BNP, troponin level, Solu-Medrol infusion, twelve-lead EKG. Differential diagnosis includes but is not limited to Worsening COVID-19 infection, COPD exacerbation, CHF, acute myocardial infarction, electrolyte abnormalities I am signing this patient over to Dr. Tristian Crowder after shift change. I reviewed the patient's history, chief complaint and pending workup results with him. He will make final disposition. (MARINA RANDHAWA) Patient accepted by [facility] at 11:21 PM. Accepting physician is . 11/24/23 03:[address] Crowder at approximately 7 PM. Preliminary workup reveals patient to be acidotic and respiratory distress. BNP elevated at 22,000. Chest x-ray reveals bilateral airspace disease with pulmonary congestion. Patient is COVID-positive. Patient received 40 mg of Lasix. IV nitroglycerin initiated. Due to worsening respiratory status patient was started on BiPAP. Patient initially declined BiPAP but later agreed to BiPAP. Patient gradually improved. Patient declined urinary catheter to gauge urine output. Repeat VBG and lactic acid revealed improving pH and CO2 levels. Lactic acid improved gradually as well. Patient appeared to improve clinically as well. Antibiotic therapy initiated. Troponin gradually increasing. Patient had no active chest pain. Elevated troponins likely secondary to demand ischemia from a persistent tachycardic state. Patient received doxycycline and vancomycin. After extensive discussion with family they decided to transfer to [facility] where her computer forwarding system markup clerk is on staff. Patient's computer forwarding system markup clerk is . Patient accepted at [facility] at 11:21 PM. They did not have a bed immediately available. However advised that a bed was expected to become available before 7 AM. The timeframe was discussed with warehouse shipping associate who requested patient stay in the ED for management versus transfer to floor. During this timeframe respiratory therapy was regularly at patient's bedside assessing patient's respiratory status. Bed became available at [facility]. Transport available at 4:30 AM. Patient requested Xanax which she normally phil es at night. Half milligram of Xanax administered p.o. patient has been stable during her extended stay in our ED. We have been monitoring patient closely. Family at bedside. They agree to transfer to [facility] for further evaluation and treatment. Portions of this note were created with voice recognition technology. There may be grammatical, spelling, punctuation or sound alike errors Complexity of problems addressed is high, complicated. Critical care time as documented per initial evaluating physician. Patient on a nitroglycerin drip for management of pulmonary congestion/heart failure 11/24/23 03:57 (TRISTIAN CROWDER) Medical Desision Making - Independent Historian Additional History obtained from: Slate Splitter/EMT - Risk of complications The pt has a high risk of morbidity or mortality based on: Decision regarding hospitilization or escalation of hosp level of care - Departure Departure Disposition: In-patient Admission Critical Care Time: Yes Critical Care Time(excluding separately billable procedures): Critical 30-74 mins (40) - Departure Clinical Impression: Respiratory distress, COVID-19 virus infection, Elevated troponin, Elevated brain natriuretic peptide (BNP) level, Heart failure, Metabolic acidosis, Pneumonia Condition: Fair Referrals: [employer] C[employer] [Primary Care Provider] - Follow up/PCP as directed
[2023-11-23] MEDS ORDERED: Sterile H2O 10 ml IJ ONE (18:01)
[2023-11-23] MEDS ORDERED: solu-MEDROL ONE (18:01)
[2023-11-23] MEDS: solu-MEDROL 125 MG, Sterile H2O 10 ml 2 ML IV ONE (18:02)
[2023-11-23 18:11] LABS: A-aADO2 551; ABG HEMOGLOBIN 10.8; ABG POTASSIUM 5.2 (3.5-5.1); ARTERIAL BLD GAS O2 SATURATION 96.5 % (95-100); ARTERIAL BLOOD GAS BASE EXCESS -2.8 (-2.0-2.0); ARTERIAL BLOOD GAS FIO2 100 %; ARTERIAL BLOOD GAS PCO2 55 mmHg (35-45); ARTERIAL BLOOD GAS PO2 93 mmHg (75-100); ARTERIAL BLOOD GAS pH 7.26 (7.35-7.45); HCO3- 24.7 (22-28); HGB O2 SAT 96.5 g/dF (94-100); paO2 pAO1 0.14
[2023-11-23 18:12] LABS: ABG SITE RIGHT BRACHIAL
[2023-11-23 18:27] LABS: Absolute Neutrophil Ct (ANC) 14.12 x10^3/uL (1.56-6.13); BASOPHIL % 0.2 % (0.1-1.2); Basophil (Absolute #) 0.04 x10^3/uL (0.01-0.08); Eosinophil % 0.1 % (0.7-5.8); Eosinophil (Absolute #) 0.01 x10^3/uL (0.04-0.36); Hematocrit 33.7 % (34.1-44.9); Hemoglobin 10.3 g/dL (11.2-15.7); IMMATURE GRAN # 0.14 x10^3u/L (0.001-0.031); IMMATURE GRAN % 0.8 % (0.001-0.429); Lymphocyte (Absolute #) 1.78 x10^3/uL (1.18-3.74); Lymphocytes % 10.1 % (19.3-51.7); Mean Cell Volume 105.6 fL (79.4-94.8); Mean Corpuscular Hemoglobin 32.3 pg (25.6-32.2); Mean Corpuscular Hgb Concent. 30.6 g/dL (32.2-35.5); Mean Platelet Volume 9.9 fL (9.4-12.3); Monocyte (Absolute #) 1.53 x10^3/uL (0.24-0.86); Monocytes % 8.7 % (4.7-12.5); Neutrophil % 80.1 % (34.0-71.1); Platelet Count 252 x10^3/uL (182-369); Red Blood Count 3.19 x10^6/uL (3.93-5.22); Red Cell Distribution Width 14.2 % (11.7-14.4); White Blood Count 17.6 x10^3/uL (3.98-10.04)
[2023-11-23 18:40] LABS: ALBUMIN 4.1 g/dL (3.5-5.0); ANION GAP 17.6 MEQ/L (5-15); BILIRUBIN,TOTAL 0.6 mg/dL (0.2-1.3); Calcium 9.9 mg/dL (8.4-10.2); EST GLOMERULAR FILTRATION RATE 58.4 ML/MIN; MAGNESIUM 1.9 mg/dL (1.6-2.3); Potassium 4.9 mmol/L (3.5-5.1); Total Protein 6.8 g/dL (6.3-8.2)
[2023-11-23 19:01] LABS: INFLUENZA A NEGATIVE (NEGATIVE); INFLUENZA B NEGATIVE (NEGATIVE); RESPIRATORY SYNCTIAL VIRUS NEGATIVE (NEGATIVE)
[2023-11-23 19:05] LABS: SARS-CoV-2 Xpert Express POSITIVE (NEGATIVE)
[2023-11-23] MEDS ORDERED: Lasix 40 MG/4 ML ONE (19:58)
[2023-11-23] MEDS: Lasix 40 MG/4 ML IV ONE (20:00)
[2023-11-23 20:12] LABS: Slide Review 1 YES
[2023-11-23] MEDS ORDERED: Ntg 0.2MG/Ml in D5W GLASS*** 250 ML IV ONE (20:44)
[2023-11-23] MEDS: Ntg 0.2MG/Ml in D5W GLASS*** 250 ML IV PRN (20:48)
[2023-11-23 20:49] LABS: VBG BASE EXCESS -0.5 (-2.0-2.0); VBG CARBOXYHEMOGLOBIN 2.6 % T HGB (0.0-6.9); VBG HCO3- 28.9 meq/L (22-28); VBG HEMOGLOBIN 10.9; VBG O2 SATURATION 25.6 (95-100); VBG POTASSIUM 5.1 (3.5-5.1)
[2023-11-23 20:50] LABS: VBG pH 7.2 (7.32-7.42)
[2023-11-23] MEDS ORDERED: VANCOMYCIN 1 GRAM/200 ML BAG 1 GM/200 ML PIGGYBACK IV ONE (21:45)
[2023-11-23] MEDS: VANCOMYCIN 1 GRAM/200 ML BAG 1 GM/200 ML PIGGYBACK IV ONE ×2 (21:46→21:47)
[2023-11-23 22:14] LABS: VBG BASE EXCESS -0.1 (-2.0-2.0); VBG HCO3- 28.1 meq/L (22-28); VBG HEMOGLOBIN 10.6; VBG O2 SATURATION 61.5 (95-100); VBG POTASSIUM 5.4 (3.5-5.1); VBG pH 7.25 (7.32-7.42)
[2023-11-23] MEDS ORDERED: Zofran 4 MG/2 ML VIAL ONE (22:31)
[2023-11-23] MEDS: Zofran 4 MG/2 ML VIAL IV ONE (22:34)
[2023-11-24] MEDS ORDERED: D5w 100ML Mini Bag 100 ML 100 ML IV ONE (00:15)
[2023-11-24] MEDS ORDERED: VIBRAMYCIN 100 MG IV ONE (00:15)
[2023-11-24] MEDS: VIBRAMYCIN 100 MG*** 100 MG in Dextrose 5%/Water IV Soln. 100ML PLUS BAG 100 ML IV SCH (00:17)
[2023-11-24] MEDS ORDERED: xanAX 0.5 MG ONE (02:30)
[2023-11-24] MEDS: xanAX 0.5 MG PO ONE (02:31)
[2023-11-24 05:26] VITALS: BP 116/67; PULSE 120; RESP 32; O2SAT 79
[2023-11-24 05:53] VITALS: TEMP 97.3
--- NOTE | 2023-11-24 08:35 | XRAY ---
Indication: Short of breath. Comparison: November 20, 2023 Portable chest demonstrates new bilateral lower lung interstitial alveolar opacities, right greater than left without consolidations/large effusion. Remaining chest unchanged again with COPD, CIPD, and old granulomatous disease. Heart not enlarged again with right Port-A-Cath.
== END 2023-11-24 05:00 | disposition short-term general hospital (02) ==
LOC: ED 17:36
DX: U07.1 COVID-19 (principal); J12.82 Pneumonia due to coronavirus disease 2019; R06.03 Acute respiratory distress; R77.8 Other specified abnormalities of plasma proteins; R79.89 Other specified abnormal findings of blood chemistry; I50.9 Heart failure, unspecified; E87.20 Acidosis, unspecified; J44.9 Chronic obstructive pulmonary disease, unspecified; Z79.02 Long term (current) use of antithrombotics/antiplatelets; Z79.891 Long term (current) use of opiate analgesic; Z79.52 Long term (current) use of systemic steroids; Z79.899 Other long term (current) drug therapy; Z99.81 Dependence on supplemental oxygen
CPT/HCPCS: 0241U; 36415; 36600; 71045; 80053; 82375; 82803; 82805; 83605; 83735; 83880; 84484; 85025; 87040; 93005; 94002; 94003; 94760; 94799; 96365; 96367; 96374; 96375; 99285; 99291; J1940; J2405; J2919; A9270-GY; J3370